=== PATIENT | female | born 1990 | race Caucasian/White ===

== ENCOUNTER → 2020-01-12 14:50 | Outpatient (CLI) | payer OTHER, SELFPAY ==
[2019-12-19 16:28] VITALS: BMI 25.4
[2020-01-12 15:19] LABS: Absolute Lymphocyte Count 2.06 X10^3/uL (0.83-4.51); Absolute Neutrophil Count 8.8 X10^3/uL (2.0-7.7); Basophil# 0.03 X10^3/uL; Basophil% 0.3 % (0-1); Eosinophil# 0.05 X10^3/uL; Eosinophils% 0.4 % (0-5); Hematocrit 36.2 % (37-47); Hemoglobin 12.2 g/dL (12.0-15.0); Lymphocyte # 2.06 X10^3/ul (4.0); Lymphocyte % 17.8 % (19-41); Mean Corp Hgb Conc 33.7 g/dL (32-36); Mean Corpuscular Hgb 31.4 pg (27.0-32.0); Mean Corpuscular Volume 93.3 fL (81-99); Mean Platelet Vol. 10.3 fl (6.2-12.0); Monocyte# 0.54 X10^3/uL; Monocyte% 4.7 % (0-10); NRBC Flagged by Analyzer 0 % (0-5); Neutrophil # 8.75 X10^3/uL (2.7-7.7); Neutrophil % 75.6 % (47-70); Platelet Count 166 K/mm3 (150-450); RBC Distribution Width CV 12.3 % (11.6-14.6); RBC Distribution Width SD 41.6 fl (35.1-43.9); Red Blood Count 3.88 M/mm3 (4.2-5.4); White Blood Count 11.6 K/mm3 (4.4-11.0)
[2020-01-12 15:47] LABS: Glucose Challenge Gest 1H 50g 153 mg/dL (70-140)
== END ==
PROVIDERS: Referring Provider Obstetrics & Gynecology; Visit Provider Obstetrics & Gynecology
DX: Z13.1 Encounter for screening for diabetes mellitus (principal); Z34.90 Encounter for supervision of normal pregnancy, unspecified, unspecified trimester
CPT/HCPCS: 36415; 82950; 85025

== ENCOUNTER → 2020-01-18 06:55 | Outpatient (CLI) | payer OTHER, SELFPAY ==
[2020-01-12 15:33] VITALS: BMI 26.2
[2020-01-18 07:34] LABS: Glucose GTT-Gestation. Fasting 89 mg/dL (<105)
[2020-01-18 09:12] LABS: Glucose GTT-Gestational 1 Hr 223 mg/dL (<190)
[2020-01-18 09:38] LABS: Glucose GTT-Gestational 2 Hr 191 mg/dL (<165)
[2020-01-18 11:07] LABS: Glucose GTT-Gestational 3 Hr 141 L (<145)
== END ==
PROVIDERS: Referring Provider Obstetrics & Gynecology; Visit Provider Obstetrics & Gynecology
DX: R73.09 Other abnormal glucose (principal)
CPT/HCPCS: 36415; 82951; 82952

== ENCOUNTER → 2020-02-07 16:19 | Outpatient (CLI) | payer OTHER, SELFPAY ==
[2020-01-25 15:38] VITALS: BMI 26.3
[2020-02-06 16:25] VITALS: BMI 27.1
--- NOTE | 2020-02-07 16:31 | US_ITS ---
STUDY: SECOND AND THIRD TRIMESTER OBSTETRICAL ULTRASOUND - LIMITED REASON FOR EXAM: Female, 29 years old. growth LMP: 06/25/19 PRIOR ULTRASOUND: None. TECHNIQUE: Transabdominal ultrasound evaluation was performed. FINDINGS: There is a single intrauterine fetus. The fetus is in a cephalic presentation. There is demonstrated cardiac activity with a heart rate of 122 bpm. There is a normal amniotic fluid volume. The largest amniotic fluid pocket measures 7.3 to cm. The amniotic fluid index (JOEL) is 17.6 cm. The placenta is anterior in location and is not low lying. There are Grade 2 placental changes. The cervix is closed and measures 3.06 cm in length. BIOMETRY: BPD: 8.04 cm: 32 weeks, 2 days HC: 29.05 cm: 31 weeks, 6 days AC: 29.32 cm: 33 weeks, 2 days FL: 6.0 cm: 31 weeks, 1 days Age by LMP: 32 weeks, 3 days. HEATHER by LMP: 03/31/20. age by current US: 31 weeks, 6 days. HEATHER by current US: 04/04/20. Estimated weight: 2016 grams, +/- 320 grams, 46 percentile. US/OB Limited With Biometrics IMPRESSION: Single live intrauterine gestation at approximately 31 weeks and 6 days based on the current ultrasound. Electronically Signed: Kenrick Myeers, at 15:55 EST Tel , Service support ,
== END ==
PROVIDERS: Referring Provider Obstetrics & Gynecology; Visit Provider Obstetrics & Gynecology
DX: O24.419 Gestational diabetes mellitus in pregnancy, unspecified control (principal); Z3A.31 31 weeks gestation of pregnancy
CPT/HCPCS: 76816

== ENCOUNTER → 2020-03-06 08:52 | Outpatient (CLI) | payer OTHER, SELFPAY ==
[2020-01-25 15:38] VITALS: BMI 26.3
[2020-02-24 08:09] VITALS: BMI 27.2
--- NOTE | 2020-03-06 08:58 | US_ITS ---
STUDY: SECOND AND THIRD TRIMESTER OBSTETRICAL ULTRASOUND - LIMITED REASON FOR EXAM: Female, 29 years old GROWTH -- HX OF GESTATIONAL DIABETES LMP: 06/25/2019 PRIOR ULTRASOUND: Comparison is made with prior study dated 02/07/2020 TECHNIQUE: Transabdominal TECHNICAL QUALITY: Adequate. FINDINGS: There is a single intrauterine fetus. The fetus is in a cephalic presentation. There is demonstrated cardiac activity with a heart rate of 140 bpm. There is a normal amniotic fluid volume. The largest amniotic fluid pocket measures 6.7 cm x 1.9 cm. The amniotic fluid index (JOEL) is 20 cm. The placenta is anterior in location and is not low lying. There are Grade 2 placental changes. The cervix was not measured. The patient did not fill the bladder. BIOMETRY: BPD: 8.93 cm: 36 weeks, 0 days HC: 32.42 cm: 36 weeks, 4 days AC: 32.9 cm: 36 weeks, 5 days FL: 7.01 cm: 35 weeks, 6 days Age by LMP: 36 weeks, 3 days. HEATHER by LMP: 03/31/2020. age by prior US: 35 weeks, 6 days. HEATHER by prior US: 04/04/2020. age by current US: 36 weeks, 6 days. HEATHER by current US: 03/28/2020. Estimated weight: 2958 grams, +/- 438 grams, 55.5 percentile. US/OB Limited With Biometrics IMPRESSION: Single live intrauterine gestation with a mean gestational age of 35 weeks and 6 days. The measurements obtained today fall within the normal expected range. Electronically Signed: Josiah Polo, at 10:08 EST , Service support ,
== END ==
PROVIDERS: Referring Provider Obstetrics & Gynecology; Visit Provider Obstetrics & Gynecology
DX: O24.419 Gestational diabetes mellitus in pregnancy, unspecified control (principal); Z3A.35 35 weeks gestation of pregnancy
CPT/HCPCS: 76816; 87081

== ENCOUNTER → 2020-03-15 17:20 | Outpatient (CLI) | payer OTHER, SELFPAY ==
[2020-03-14 15:19] VITALS: BMI 27.8
== END ==
PROVIDERS: Referring Provider Obstetrics & Gynecology; Visit Provider Obstetrics & Gynecology
DX: Z34.00 Encounter for supervision of normal first pregnancy, unspecified trimester (principal)
CPT/HCPCS: 87635; C9803; U0003

== ENCOUNTER 2020-03-21 18:05 | Inpatient (IN) | payer OTHER, SELFPAY ==
[2020-03-21] VITALS (32 sets, daily range): BP systolic 91–130; BP diastolic 49–83; PULSE 71–99; TEMP 36.3–37.1; O2SAT 82–100; BMI 28.0; BMI 28.2
[2020-03-21 18:53] LABS: Absolute Lymphocyte Count 2.83 X10^3/uL (0.83-4.51); Absolute Neutrophil Count 8.9 X10^3/uL (2.0-7.7); Basophil# 0.04 X10^3/uL; Basophil% 0.3 % (0-1); Eosinophil# 0.06 X10^3/uL; Eosinophils% 0.5 % (0-5); Hematocrit 39.9 % (37-47); Hemoglobin 13.7 g/dL (12.0-15.0); Lymphocyte # 2.83 X10^3/ul (4.0); Lymphocyte % 22.2 % (19-41); Mean Corp Hgb Conc 34.3 g/dL (32-36); Mean Corpuscular Hgb 30.9 pg (27.0-32.0); Mean Corpuscular Volume 89.9 fL (81-99); Mean Platelet Vol. 11.1 fl (6.2-12.0); Monocyte# 0.78 X10^3/uL; Monocyte% 6.1 % (0-10); NRBC Flagged by Analyzer 0 % (0-5); Neutrophil % 69.8 % (47-70); Platelet Count 151 K/mm3 (150-450); RBC Distribution Width CV 12.2 % (11.6-14.6); RBC Distribution Width SD 40.4 fl (35.1-43.9); Red Blood Count 4.44 M/mm3 (4.2-5.4); White Blood Count 12.8 K/mm3 (4.4-11.0)
[2020-03-21 18:56] LABS: Bedside Glucose 96 mg/dL (70-110)
[2020-03-21] MEDS: Lactated Ringers 1,000 ML 50 ML IV (19:16)
[2020-03-21] MEDS: Lactated Ringers 500 ML 999 ML IV ×2 (19:18→20:34)
[2020-03-21] MEDS: 0.9% Saline Lock 10 ML Syringe IV (19:40)
[2020-03-21] MEDS: Ondansetron 4 MG/2 ML Vial IV (19:40)
--- NOTE | 2020-03-21 20:04 | PCM.HPOB.BLA ---
- Problem List (1) Rupture of membranes with clear amniotic fluid Status: Acute (2) 38 weeks gestation of Status: Acute Comment: electronic test ordered 03/20/20 (scheduled for 03/21/20 at 1655) (3) Gestational diabetes mellitus (GDM) affecting Status: Acute Comment: Following with Dr. Magdaleno (endo). Currently controlled with diet. Weekly NSTs and q4 weeks for growth US at 32 weeks. Timing of delivery pending glycemic control. Growth 02/09- 47% (4) Status: Acute Qualifiers: Comment: anatomy US normal. JD from [place] (5) Supervision of normal first Status: Acute Qualifiers: Comment: PRR ([place] NOB labs) HEATHER 03/31/20 Boy! Surendra History and Physical Date of Admission: 03/21/20 Intake Vital Signs 03/21/20 Height 5 ft 1 in 03/21/20 Weight: 148 lb 2 oz 03/21/20 BMI 28.0 03/21/20 BP 110/72 Intake Visit Reasons: 38 WK OB/NST [employer] Required: No Is patient in pain?: No Allergies No Known Allergies Allergy (Verified 03/21/20 16:14) Medications vitamin #56-iron 35 mg and 5 mg-folic acid 1 mg-dha capsule 1 cap PO DAILY 12/19/19 [History Confirmed 03/21/20] blood sugar diagnostic See Rx Instructions .ROUTE .MEDSUPPLY #100 ea 01/20/20 [Rx Confirmed 03/21/20] blood-glucose meter See Rx Instructions .ROUTE .MEDSUPPLY #1 ea 01/20/20 [Rx Confirmed 03/21/20] Last Menstral Period: 06/25/19 Zika: Zika virus screening: Negative : No PFSH PFSH Family History Grandmother Diabetes Grandfather Parkinsons disease CAD (coronary artery disease) Cancer melanoma Hypertension Social History (Updated 03/21/20 @ 16:[address] Mirella Meyer MD) Smoking Status: Never smoker alcohol intake: never substance use type: does not use caffeine: Yes what type of physical activity do you participate in: none seatbelt use: always do you feel safe at home: Yes additional social history: Surendra- [employer] Patient is a speech therapist Pregancy History 1 Elective abortions Hx Para Spontaneous abortions Hx # Term Pregnancies Ectopic pregnancies Hx # Pregnancies Multiple births # of living children HPI 38 WK OB/NST: Details: JOSH HAIRSTON is a 29 year old who presents for routine OB visit. OB Visit HEATHER Calculator Estimated Delivery Date Method Current WG Current Estimate 03/31/20 LMP (Certain) 38w 4d Expected Delivery Route/Plan Labor Preferences- CB/BF classes: scheduled 02/03 labor support person: Surendra labor intervention preferences: open to standard interventions pain management options preferred: epidural cut cord/dad catch: yes : yes PP control planned: [] discussed possible routes of delivery and associated risks: discussed possible delivery modalities and possible indications for each including R/B/A of , VAVD, FAVD, and CS. questions answered. special requests: none Specific Issue/Plans flu vaccine: given tdap vaccine: declines rhogam: NA LARC form signed: 01/11 movement and labor precautions reviewed. Problem list reviewed and updated with the most current plan of care details and appropriate orders placed. Relevant counseling for the gestational age provided. Continue routine care and follow up unless otherwise noted in visit notes/problem list details Initial Weight: Not Recorded Date EGA Weight BP Urine Prot Glucose FHR FuHt Pres Dilation Effaced St Visit Note 12/19/19 25w 2d 135 lb 100/62 145 25 Sm- JD [place]. n ovb lof good fm no regular ctx. given glucola 01/12/20 28w 5d 139 lb 116/80 Negative Negative 140 28 GP - no LOF, VB, DFM, ctx. Larc form signed - declines. Declines TDAP. 1h GCT elevated - discussed 3h. 01/25/20 30w 4d 139 lb 6 oz 114/76 Negative Negative 135 30 GP - no LOF, VB, DFM, ctx. Recent Dx GDMA - endo visit next week. Discussed BGT monitoring and testing. GP - no LOF, VB, DFM, ctx. Recent Dx GDMA - endo visit next week. Discussed BGT monitoring and testing. CB classes scheduled before next visit. 02/06/20 32w 2d 144 lb 120/72 Negative Negative 130 32 SM- no vb lof good fm no regular ctx, BS well controlled. 02/15/20 33w 4d 146 lb 105/68 Negative Negative 130 GP - NST only - reactive. 02/24/20 34w 6d 144 lb 4 oz Negative Negative 140 GP - no LOFm VB, DFM, ctx. Discussed labor preferences and routes of delivery. GP - no LOF, VB, DFM, ctx. Discussed labor preferences and routes of delivery. NST reactive. 02/29/20 35w 4d 120 GP - NST only, reactive 03/06/20 36w 3d 145 lb 4 oz 96/60 Negative Negative 140 37 Cephalic 2 40 -2 MH-Reactive NST. Good FM. NO VB, LOF, CTX. Growth US today-EFW 55%. GBS. 03/14/20 37w 4d 147 lb 2 oz 120/70 Negative Negative 130 37 Cephalic 4 70 -2 GP - no LOF, VB, DFM. Not feeling contractions. GP - no LOF, VB, DFM. Not feeling contractions. COVID testing scheduled for tomorrow. 03/21/20 38w 4d 148 lb 2 oz 110/72 Negative Negative 140 38 Cephalic 5 80 -1 GP - no LOF, VB, DFM, ctx. NST reactive. GP - no LOF, VB, DFM, ctx. NST reactive. SROM with membrane sweeping in office. Sent for delivery. Diagnostics Diagnostics Diagnostics Gest Glucose Tolerance MG/DL 01/18/20 Details: HIV: Urine Culture: Sequential Screen: NIPT Screen: ROS Const Reports system reviewed and no additional complaints, except as docu Eyes Reports system reviewed and no additional complaints, except as docu ENT Reports system reviewed and no additional complaints, except as docu Card Reports system reviewed and no additional complaints, except as docu Resp Reports system reviewed and no additional complaints, except as docu GI Reports system reviewed and no additional complaints, except as docu Reports system reviewed and no additional complaints, except as docu, Denies abnormal vaginal bleeding, Denies painful urination, Denies pelvic pain, Denies vaginal discharge, Denies vaginal odor, Denies vaginal itching Musc Reports system reviewed and no additional complaints, except as docu Skin/Breast Reports system reviewed and no additional complaints, except as docu Neuro Yes system reviewed and no additional complaints, except as docu Psych Reports system reviewed and no additional complaints, except as docu Endo Reports system reviewed and no additional complaints, except as docu Exam Const General: cooperative, healthy appearing, comfortable, no acute distress, well developed, well groomed Nutritional Appearance: average body habitus, well nourished Orientation: alert, awake, oriented x3 HENMT Head: normal to inspection, normocephalic, atraumatic Eyes Pupils: PERRL, accommodation normal Resp Effort & Inspection: normal respiratory effort, able to speak in complete sentences, symmetric chest movement Cardio Rate: regular rate GI Palpation: soft, no guarding, no masses, nontender Skin General: no rashes or lesions noted, elasticity normal, turgor normal Neuro General: alert, awake, oriented x3 Cranial Nerves: CN's II-XI intact bilaterally, sense of smell intact, PERRL, accommodation normal, EOM intact bilaterally Speech: speech normal Gait: normal gait Psych Appearance: grossly normal, well kempt Mental Status: mental status grossly normal Mood: congruent mood Affect: normal affect Speech and Movement: speech and movement normal Attitude: cooperative Thought Process: normal Thought Content: normal Judgment: judgment good Office Procedures OB NST Non-Stress Test Indications for Monitoring: Yes diabetes Heart Rate Baseline: 140 Heart Rate Variability: moderate Movement: Present Heart Rate Accelerations: Present Decelerations: Absent Contractions: Absent Impression: Yes Reactive Non-Stress Test Results POC Urinalysis 2 Dip (Clinic) Office Urine Glucose Negative Last Edit by Kay Dexter on 03/21/20 16:23 Office Urine Protein Negative Last Edit by Kay Dexter on 03/21/20 16:23 Assessment & Plan Problems 1. 38 weeks gestation of Z3A.38 electronic test ordered 03/20/20 (scheduled for 03/21/20 at 1655) 2. Gestational diabetes mellitus (GDM) affecting O24.[address] Magdaleno (endo). Currently controlled with diet. Weekly NSTs and q4 weeks for growth US at 32 weeks. Timing of delivery pending glycemic control. Growth 11/27- 47% 3. Encounter for supervision of normal first in third trimester Z34.03 PRR ([employer] labs) HEATHER 03/31/20 Boy! Surendra 4. 38 weeks gestation of Z3A.38 anatomy US normal. JD from [place] Patient presents IAL, plan expectant management for , pitocin if needed. Pain management: plans epidural. GBS negative. Management of any complications: none I have reviewed the [facility] and made any clinically relevant updates. UPDATE- I have seen the patient and performed any clinically relevant updates to the history and physical exam. Mirella Meyer MD
[2020-03-21] MEDS: fentaNYL-bupivacaine (epidural) 100 ML BAG EPIDURAL ×2 (20:12→23:51)
[2020-03-21 21:01] LABS: Bedside Glucose 123 mg/dL (70-110)
[2020-03-21 22:00] LABS: Bedside Glucose 142 mg/dL (70-110)
[2020-03-21 22:51] LABS: Bedside Glucose 117 mg/dL (70-110)
[2020-03-21] MEDS: Lactated Ringers 1,000 ML 200 ML IV (23:25)
[2020-03-21 23:35] LABS: Bedside Glucose 110 mg/dL (70-110)
[2020-03-22] VITALS (25 sets, daily range): BP systolic 86–124; BP diastolic 50–80; PULSE 63–110; RESP 16–18; TEMP 36.1–37.7; O2SAT 94–98
[2020-03-22] MEDS: Oxytocin 30 units/NS 500 ml 30 UNITS/500 ML IV.SOLN 334 UNITS IV (01:15)
[2020-03-22] MEDS: Methylergonovine 0.2 MG/ML Ampul IM (01:21)
--- NOTE | 2020-03-22 01:37 | OP.PCM_ITS ---
Problem List (1) Rupture of membranes with clear amniotic fluid Status: Acute (2) 38 weeks gestation of Status: Acute Comment: electronic test ordered 03/20/20 (scheduled for 03/21/20 at 1655) (3) Gestational diabetes mellitus (GDM) affecting Status: Acute Comment: Following with Dr. Magdaleno (endo). Currently controlled with diet. Weekly NSTs and q4 weeks for growth US at 32 weeks. Timing of delivery pending glycemic control. Growth 02/09- 47% (4) Status: Acute Qualifiers: Comment: anatomy US normal. JD from [place] (5) Supervision of normal first Status: Acute Qualifiers: Comment: PRR ([place] NOB labs) HEATHER 03/31/20 Boy! Surendra Vaginal Delivery Maternal Presentation: Spontaneous Rupture of Membranes 29-year-old G1, P0 at 38 weeks gestation admitted for augmentation of labor for PROM after spontaneous rupture of membranes during exam in the office. Patient began keila every 2 minutes spontaneously and made cervical change to complete dilation without augmentation. Amniotic Membrane Rupture Type: Spontaneous Amniotic Fluid Description: Clear Final HEATHER: 03/31/20 Gestational age: 38 Weeks and 5 Days Date of Procedure: 03/22/20 Pre-Operative Diagnosis: Term , active labor, gestational diabetes controlled with diet Post-Operative Diagnosis: Same Surgery/ Procedure Performed: Spontaneous Vaginal Delivery Type of Anesthesia: Epidural Description of Procedure: Patient began pushing and delivered the head in the JL presentation. The head was delivered atraumatically no nuchal cord was noted. The anterior and posterior shoulders delivered without complication followed by the rest of the infant and the was placed on the maternal abdomen. Delayed cord clamping was employed for approximately 60 seconds. Cord was clamped and cut and gentle traction was applied to the cord and the placenta delivered spontaneously immediately following it was noted to be intact with three-vessel cord. The perineum and vagina were inspected and a midline second-degree perineal laceration was noted and repaired in the standard fashion using 3-0 Vicryl rapide suture. The patient was given a dose of Methergine as mild uterine atony was noted. EBL was 350 cc. Patient and infant tolerated delivery well. Presentation: Vertex, JL Placental Delivery Description: Spontaneous Placenta Disposition: [facility] Cord Vessel Description: 3 Vessels Cord Entanglement: None Estimated Blood Loss: 350 cc A gender: Male (1 minute): 8 (5 minute): 9 Episiotomy Description: None Laceration: None, Perineal Extension/lac, 2nd degree Medications given after delivery: IV Pitocin, IM Methergin Complications: None Multi Select Codes - Urinary/Genital Urinary/Genital CPT Codes: 13306 Vaginal Delivery [facility]
[2020-03-22] MEDS: Ondansetron 4 MG/2 ML Vial IV (01:48)
[2020-03-22 01:56] LABS: Bedside Glucose 102 mg/dL (70-110)
[2020-03-22] MEDS: Naproxen 250 MG Tablet 500 MG PO ×2 (05:19→16:02)
[2020-03-22] MEDS: Acetaminophen 500 MG Tablet 1000 MG PO ×2 (09:45→21:36)
[2020-03-22] MEDS: Dibucaine 30 GM Tube 1 APPLIC TOPICAL (18:02)
[2020-03-23 04:16] VITALS: BP 98/67; PULSE 72; RESP 18; TEMP 36.6; O2SAT 97
[2020-03-23] MEDS: Naproxen 250 MG Tablet 500 MG PO ×2 (04:19→17:57)
--- NOTE | 2020-03-23 07:23 | PCM.PN.OB ---
Patient Problems: Active and Suspected Problems (Last Reviewed 03/21/20 @ 16:13 by Kay Dexter) Rupture of membranes with clear amniotic fluid (Acute) 38 weeks gestation of (Acute) electronic test ordered 03/20/20 (scheduled for 03/21/20 at 1655) Gestational diabetes mellitus (GDM) affecting (Acute) Following with Dr. Magdaleno (endo). Currently controlled with diet. Weekly NSTs and q4 weeks for growth US at 32 weeks. Timing of delivery pending glycemic control. Growth 02/09- 47% Supervision of normal first (Acute) PRR ([employer] labs) HEATHER 03/31/20 Boy! Surendra (Acute) anatomy US normal. JD from [place] Subjective: Patient doing well without complaints. Tolerating PO. Ambulating and voiding without difficulty. breast feeding well. Denies chest pain, shortness of breath, calf pain/swelling, fevers, chills, lightheadedness. - Physical Exam Vitals/I&O's: Vital Signs Temp Pulse Resp BP Pulse Ox 97.9 F 72 18 98/67 97 03/23/20 04:16 03/23/20 04:16 03/23/20 04:16 03/23/20 04:16 03/23/20 04:16 Oxygen Delivery Method Room Air Weight: 149 lb 4.047 oz Body Mass Index (BMI) 28.2 Intake and Output for Last 24 Hours 03/21/20 03/22/20 03/23/20 23:59 23:59 23:59 Intake Total 1616.67 / 1866.67 1100 / 1100 Output Total 1950 / 1950 Balance 1616.67 / 1066.67 -850 / -850 General: Alert, Oriented x3 Current Medications Acetaminophen (Acetaminophen 500 Mg Tablet) 1,000 mg PO Q8H PRN PRN PRN Reason: Pain Score 1-3 Last Admin: 03/22/20 21:36 Dose: 1,000 mg Documented by: Bisacodyl (Bisacodyl 10 Mg Suppository) 10 mg RECTAL UD PRN PRN Reason: If no BM Dextrose (Dextrose 50%-Water 25 Gm/50 Ml Disp.Syrin) 0 gm IV X1 PRN; Protocol PRN Reason: Hypoglycemia Dibucaine (Dibucaine 30 Gm Tube) 1 applic TOPICAL TID PRN PRN; Protocol PRN Reason: Discomfort Last Admin: 03/22/20 18:02 Dose: 1 applicatio Documented by: Glucagon (Glucagon 1 Mg/Ml Syringe) 1 mg IM .X1 PRN PRN Reason: Hypoglycemia Hydrocortisone (Hydrocortisone 2.5% Crm) 1 applic TOPICAL TID PRN PRN; Protocol PRN Reason: Discomfort Methylergonovine Maleate (Methylergonovine 0.2 Mg/Ml Ampul) 0.2 mg IM X1 PRN PRN Reason: Excess bleeding/uterine atony Naproxen (Naproxen 250 Mg Tablet) 500 mg PO Q8H PRN PRN PRN Reason: Pain Score 1-3 Last Admin: 03/23/20 04:19 Dose: 500 mg Documented by: Ondansetron HCl (Ondansetron 4 Mg/2 Ml Vial) 4 mg IV Q4H PRN PRN PRN Reason: Nausea Oxycodone HCl (Oxycodone 5 Mg Tablet) 5 - 10 mg PO Q4H PRN PRN PRN Reason: Pain Score 4-10 Senna/Docusate Sodium (Senna/Docusate Sodium 1 Tablet) 1 - 2 tablet PO DAILY PRN PRN PRN Reason: Constipation Simethicone (Simethicone 80 Mg Tablet) 80 mg PO PCHS PRN PRN Reason: Indigestion/Stomach pain Sodium Chloride (0.9% Saline Lock 10 Ml Syringe) 5 - 15 ml IV UD PRN PRN Reason: SALINE FLUSH Medical Necessity - Tobacco Use Smoking Status: Never smoker Assessment/Plan All Active Problems (Last Reviewed 03/21/20 @ 16:13 by Kay Dexter) Rupture of membranes with clear amniotic fluid (Acute) 38 weeks gestation of (Acute) Gestational diabetes mellitus (GDM) affecting (Acute) Supervision of normal first (Acute) (Acute) s/p PPD # 1 1. routine post delivery care 2. breast feeding- support given 3. rh positive 4. rubella immune
--- NOTE | 2020-03-23 07:24 | DCINST_ITS ---
Discharge Diet: No Restrictions Discharge Activity: Return to Normal Activity, May not drive while taking narcotic pain medications., May Shower May resume sexual activity in: 4-6 weeks Call your doctor if your incision/area has: Continuous Slow Oozing, Sudden Increased Bleeding, Increased Pain/ Swelling, Increased Redness, Foul Smelling Discharge Additional Instructions: If you experience any of the following, contact your healthcare provider. * Bleeding that soaks a pad every hour for 2 hours * Fever 100.4 or higher * Unrelieved incision or abdominal pain * Swelling, redness, discharge or bleeding from your incision or episiotomy site * Your incision begins to separate * Problems urinating (including inability to urinate or burning while urinating). * Visual changes * Severe headache * Flu-like symptoms * Pain or redness in one of both of your breasts * Pain, warmth, tenderness or swelling in your legs, especially the calf area * Frequent nausea and vomiting * Symptoms of depression or anxiety If you experience any of the following, call 911 or go to the nearest Emergency Room. * Chest pain * Problems breathing * Seizure activity * Partial or complete paralysis of a body part, slurred speech, weakness or drooping of the face, or a sudden inability to walk or hold your balance Allergies/Adverse Reactions: Allergies No Known Allergies Allergy (Verified 03/21/20 16:14) Medications to take at Discharge vitamin #56-iron 35 mg and 5 mg-folic acid 1 mg-dha capsule 1 cap PO DAILY 12/19/19 Blood Sugar Diagnostic [Blood Glucose Test] See Rx Instructions .ROUTE .MEDSUPPLY 03/21/20 Blood-Glucose Meter [Contour] See Rx Instructions .ROUTE .MEDSUPPLY 03/21/20 Please Follow Up With: Bonnie Diaz MD - [phone] When: Call to make an appointment with your doctor in 6 weeks. If you had elevated Blood pressure or 4th degree laceration you will need to be seen in 2 weeks. Primary Care Physician: Care Physician,No Primary [Primary Care Provider] - Test Results: Test results from this visit will be discussed in further detail at your follow- up appointment, if applicable.
[2020-03-23 08:33] LABS: Bedside Glucose 85 mg/dL (70-110)
[2020-03-23 09:30] VITALS: BP 94/58; PULSE 81; RESP 16; TEMP 36.3; O2SAT 97
[2020-03-23 13:07] VITALS: BP 100/63; PULSE 74; RESP 16; TEMP 36.7; O2SAT 98
[2020-03-23 16:50] VITALS: BP 98/58; PULSE 80; RESP 16; TEMP 36.6; O2SAT 98
== END 2020-03-23 18:55 | disposition home or self-care (01) | DRG 807 ==
PROVIDERS: Admitting Provider Obstetrics & Gynecology; Visit Provider Obstetrics & Gynecology
DX: O42.02 Full-term premature rupture of membranes, onset of labor within 24 hours of rupture (principal); Z37.0 Single live birth; O70.1 Second degree perineal laceration during delivery; O62.2 Other uterine inertia; O24.429 Gestational diabetes mellitus in childbirth, unspecified control; Z3A.38 38 weeks gestation of pregnancy
CPT/HCPCS: 59025; 59050; 82962; 85025; 86850; 86900; 86901; 99218; J7120; A4216; G0378; J2405

== ENCOUNTER → 2020-04-03 15:33 | Outpatient (CLI) | payer OTHER, SELFPAY ==
[2020-03-21 18:41] VITALS: BMI 28.2
== END ==
PROVIDERS: Referring Provider Obstetrics & Gynecology; Visit Provider Obstetrics & Gynecology
DX: O92.70 Unspecified disorders of lactation (principal)
CPT/HCPCS: 96158; 96159

== ENCOUNTER → 2021-08-14 | Outpatient (CLI) | payer OTHER, SELFPAY ==
[2021-08-14 11:33] LABS: Amphetamine Urine VISTA NEGATIVE (<1000 ng/mL); Barbiturate Urine VISTA NEGATIVE (< 200 ng/mL); Benzodiazepine Urine VISTA NEGATIVE (< 200 ng/mL); Cocaine Urine VISTA NEGATIVE (< 300 ng/mL); Ecstacy Urine VISTA NEGATIVE (< 500 ng/mL); Methadone Urine VISTA NEGATIVE (< 300 ng/mL); PCP Urine VISTA NEGATIVE (< 25 ng/mL); THC Urine VISTA NEGATIVE (< 50 ng/mL); Vista UDS pH Range 6
[2021-08-15 22:07] LABS: Chlamydia By Nucleic Acid AMP Negative (Negative)
[2021-08-16 08:47] LABS: Gonococcus By Nucleic Acid AMP Negative (Negative)
== END | disposition home or self-care (01) ==
LOC: LABSPEC 08-16 04:48
PROVIDERS: Visit Provider Obstetrics & Gynecology
DX: Z34.02 Encounter for supervision of normal first pregnancy, second trimester (principal)
CPT/HCPCS: 80307; 87086; 87088; 87491; 87591

== ENCOUNTER → 2021-08-19 | Outpatient (CLI) | payer OTHER, SELFPAY ==
[2021-08-19 10:27] LABS: Absolute Lymphocyte Count 2.28 X10^3/uL (0.83-4.51); Absolute Neutrophil Count 7.4 X10^3/uL (2.0-7.7); Basophil# 0.02 X10^3/uL; Basophil% 0.2 % (0-1); Eosinophil# 0.16 X10^3/uL; Eosinophils% 1.5 % (0-5); Hematocrit 39.8 % (37-47); Hemoglobin 13.6 g/dL (12.0-15.0); Lymphocyte # 2.28 X10^3/ul (0.83-4.51); Lymphocyte % 21.6 % (19-41); Mean Corp Hgb Conc 34.2 g/dL (32-36); Mean Corpuscular Hgb 31.6 pg (27.0-32.0); Mean Corpuscular Volume 92.6 fL (81-99); Mean Platelet Vol. 9.7 fl (6.2-12.0); Monocyte# 0.64 X10^3/uL; Monocyte% 6.1 % (0-10); NRBC Flagged by Analyzer 0 % (0-5); Neutrophil # 7.38 X10^3/uL (2.7-7.7); Platelet Count 228 K/mm3 (150-450); RBC Distribution Width CV 12.2 % (11.6-14.6); RBC Distribution Width SD 41.5 fl (35.1-43.9); White Blood Count 10.5 K/mm3 (4.4-11.0)
[2021-08-19 11:03] LABS: Glucose Challenge Gest 1H 50g 102 mg/dL (70-140)
[2021-08-19 11:38] LABS: HIV - WCH Non-Reactive (Nonreactive); Hepatitis B Surface Antigen Non-Reactive (Nonreactive); Hepatitis C Antibody Non-Reactive (Nonreactive); Rubella IgG Reactive (Nonreactive); Syphilis Antibodies Non-reactive
== END | disposition home or self-care (01) ==
LOC: PAVLAB 09:56
PROVIDERS: Referring Provider Obstetrics & Gynecology; Visit Provider Obstetrics & Gynecology
DX: Z34.90 Encounter for supervision of normal pregnancy, unspecified, unspecified trimester (principal)
CPT/HCPCS: 36415; 82950; 85025; 86703; 86762; 86780; 86803; 86850; 86900; 86901; 87340

== ENCOUNTER 2021-10-22 10:00 | Outpatient (RCR) | payer OTHER, SELFPAY ==
--- NOTE | 2021-12-24 12:15 | HP.PT.NRP ---
JOSH HAIRSTON was seen in my office for initial evaluation on 10/18/21. The following Plan of Care was established for this patient: Initial Frequency: 2-3x /Week Initial Duration: 4-6 Weeks Patient/Client Instruction: Educate patient on: Condition, Plan of Care, Risk Factors For the Purpose of:: To improve self management Therapeutic Exercise to Include: Strength training, Neuromotor development, In an aquatic setting, Dynamic Lumbar Stabilization For the Purpose of:: To decrease pain, To improve muscle performance and motor function, To increase tolerance to activity/condition/position, To improve ability of physical actions for home/community/work/leisure This patient was last seen in our office 10/22/21. Pertinent comments regarding their Physical therapy will appear below: This patient has not returned to Physical Therapy and is appropriate to return to MD for further follow-up as needed. At this point I will be discontinuing this patient from physical therapy. I would be happy to see this patient again in the future if found appropriate by the physician. Thank you! Genesis Carolina, PT, Cert MDT
== END 2021-10-22 19:00 | disposition home or self-care (01) ==
LOC: PT 10:00
PROVIDERS: Referring Provider Obstetrics & Gynecology; Visit Provider Obstetrics & Gynecology
DX: M62.08 Separation of muscle (nontraumatic), other site (principal)
CPT/HCPCS: 97162; 97530

== ENCOUNTER → 2021-12-27 | Outpatient (CLI) | payer OTHER, SELFPAY ==
[2021-12-27 09:01] LABS: Absolute Lymphocyte Count 2.05 X10^3/uL (0.83-4.51); Absolute Neutrophil Count 6.5 X10^3/uL (2.0-7.7); Basophil# 0.02 X10^3/uL; Basophil% 0.2 % (0-1); Eosinophil# 0.08 X10^3/uL; Eosinophils% 0.9 % (0-5); Hematocrit 36.5 % (37-47); Hemoglobin 12.4 g/dL (12.0-15.0); Lymphocyte # 2.05 X10^3/ul (0.83-4.51); Lymphocyte % 22.3 % (19-41); Mean Corpuscular Hgb 31.5 pg (27.0-32.0); Mean Corpuscular Volume 92.6 fL (81-99); Mean Platelet Vol. 9.7 fl (6.2-12.0); Monocyte# 0.39 X10^3/uL; Monocyte% 4.2 % (0-10); NRBC Flagged by Analyzer 0 % (0-5); Neutrophil % 70.7 % (47-70); Platelet Count 176 K/mm3 (150-450); RBC Distribution Width CV 12.5 % (11.6-14.6); Red Blood Count 3.94 M/mm3 (4.2-5.4); White Blood Count 9.2 K/mm3 (4.4-11.0)
[2021-12-27 09:30] LABS: Glucose Challenge Gest 1H 50g 179 mg/dL (70-140)
== END | disposition home or self-care (01) ==
PROVIDERS: Referring Provider Nurse Practitioner Women's Health; Visit Provider Nurse Practitioner Women's Health
DX: Z34.92 Encounter for supervision of normal pregnancy, unspecified, second trimester (principal)
CPT/HCPCS: 36415; 82950; 85025

== ENCOUNTER 2022-01-07 15:46 | Outpatient (RCR) | payer OTHER, SELFPAY | END 2022-01-13 23:59 | LOC: DC 15:46 | PROVIDERS: Visit Provider Obstetrics & Gynecology | DX: O24.419 Gestational diabetes mellitus in pregnancy, unspecified control (principal) | CPT/HCPCS: 97802 ==

== ENCOUNTER 2022-01-28 15:30 | Outpatient (RCR) | payer OTHER, SELFPAY | END 2022-02-12 23:59 | LOC: DC 15:30 | PROVIDERS: Visit Provider Obstetrics & Gynecology | DX: O24.419 Gestational diabetes mellitus in pregnancy, unspecified control (principal) | CPT/HCPCS: 97803 ==

== ENCOUNTER → 2022-02-07 | Outpatient (CLI) | payer OTHER, SELFPAY ==
--- NOTE | 2022-02-07 14:46 | US_ITS ---
EXAM: US BIOPHYSICAL PROFILE WITHOUT NON-STRESS TESTING CLINICAL INDICATION: well being TECHNIQUE: Real-time ultrasound of the maternal pelvis for biophysical profile evaluation with image documentation. This report was created using [facility] report generation technology. COMPARISON: None. FINDINGS: BREATHING MOVEMENTS: Present. Score 2/2. GROSS BODY MOVEMENTS: Present. Score 2/2. TONE: Present. Score 2/2. QUALITATIVE AMNIOTIC FLUID VOLUME: JOEL is 14.3 cm. HEART RATE: heart rate is 131 bpm. PRESENTATION: There is a single intrauterine fetus. Fetus is in a cephalic position. PLACENTA: Placenta is posterior. OTHER FINDINGS: Biophysical profile scores 8/8. US/Biophysical Prof W/O Non Stres IMPRESSION: Intrauterine gestation with heart rate of 131 bpm. JOEL is 14.3 cm and biophysical profile score is 8/8. Electronically Signed: Almas Cox MD at 17:29 EST ,
== END | disposition home or self-care (01) ==
PROVIDERS: Visit Provider Obstetrics & Gynecology
DX: O24.419 Gestational diabetes mellitus in pregnancy, unspecified control (principal)
CPT/HCPCS: 76819

== ENCOUNTER → 2022-02-20 | Outpatient (CLI) | payer OTHER, SELFPAY ==
--- NOTE | 2022-02-20 08:27 | US_ITS ---
STUDY: SECOND AND THIRD TRIMESTER OBSTETRICAL ULTRASOUND - LIMITED REASON FOR EXAM: Female, 31 years old growth LMP: 06/11/2021. PRIOR ULTRASOUND: Comparison is made with prior study dated 02/07/2022. TECHNIQUE: Transabdominal TECHNICAL QUALITY: Adequate. FINDINGS: There is a single intrauterine fetus. The fetus is in a cephalic presentation. There is demonstrated cardiac activity with a heart rate of 160 bpm. There is a normal amniotic fluid volume. The largest amniotic fluid pocket measures 5.5 cm. The amniotic fluid index (JOEL) is 14.4 cm. The placenta is posterior in location and is not low lying. There are Grade 2 placental changes. The cervix measures 4.8 cm in length. BIOMETRY: BPD: 8.8 cm: 35 weeks, 3 days HC: 31.5 cm: 35 weeks, 2 days AC: 31.3 cm: 35 weeks, 1 days FL: 7 cm: 35 weeks, 5 days Age by LMP: 36 weeks, 2 days. HEATHER by LMP: 03/18/2022. age by current US: 35 weeks, 1 days. HEATHER by current US: 03/26/2022. Estimated weight: 2699 grams, +/- 405 grams, 32 percentile. US/OB Limited With Biometrics IMPRESSION: Single live uterine gestation with a mean gestational age of 35 weeks and 1 day. Electronically Signed: Josiah Polo MD at 10:16 EST ,
== END | disposition home or self-care (01) ==
LOC: US 08:23
PROVIDERS: Visit Provider Obstetrics & Gynecology
DX: O24.419 Gestational diabetes mellitus in pregnancy, unspecified control (principal); Z3A.35 35 weeks gestation of pregnancy
CPT/HCPCS: 76816

== ENCOUNTER → 2022-02-21 | Outpatient (CLI) | payer OTHER, SELFPAY | END | disposition home or self-care (01) | LOC: LABSPEC 14:42 | PROVIDERS: Visit Provider Obstetrics & Gynecology | DX: Z34.90 Encounter for supervision of normal pregnancy, unspecified, unspecified trimester (principal) | CPT/HCPCS: 87077; 87081; 87186 ==

== ENCOUNTER 2022-03-08 04:05 | Inpatient (IN) | payer OTHER, SELFPAY ==
[2022-03-08] VITALS (53 sets, daily range): BP systolic 81–124; BP diastolic 43–64; PULSE 55–85; RESP 14; TEMP 36.2–36.7; O2SAT 92–99; BMI 29.6
[2022-03-08 04:03] LABS: ROM Internal Control Test YES-OK TO RESULT pt. (Internal QC); ROM Patient Test POSITIVE (Negative)
[2022-03-08 04:31] LABS: Absolute Lymphocyte Count 2.25 X10^3/uL (0.83-4.51); Absolute Neutrophil Count 6.2 X10^3/uL (2.0-7.7); Basophil# 0.03 X10^3/uL; Basophil% 0.3 % (0-1); Eosinophil# 0.09 X10^3/uL; Hematocrit 36.9 % (37-47); Hemoglobin 11.8 g/dL (12.0-15.0); Lymphocyte # 2.25 X10^3/ul (0.83-4.51); Lymphocyte % 23.9 % (19-41); Mean Corpuscular Volume 87.4 fL (81-99); Mean Platelet Vol. 10.3 fl (6.2-12.0); Monocyte# 0.69 X10^3/uL; Monocyte% 7.3 % (0-10); NRBC Flagged by Analyzer 0 % (0-5); Neutrophil # 6.23 X10^3/uL (2.7-7.7); Neutrophil % 66.3 % (47-70); Platelet Count 167 K/mm3 (150-450); RBC Distribution Width CV 13.4 % (11.6-14.6); RBC Distribution Width SD 42.4 fl (35.1-43.9); Red Blood Count 4.22 M/mm3 (4.2-5.4); White Blood Count 9.4 K/mm3 (4.4-11.0)
[2022-03-08 05:16] LABS: Bedside Glucose 92 mg/dL (74-106)
[2022-03-08] MEDS: Lactated Ringers 1,000 ML 50 ML IV (05:23)
[2022-03-08 06:00] LABS: Bedside Glucose 92 mg/dL (74-106)
[2022-03-08] MEDS: Oxytocin 15 Units/NS 250ml 15 UNITS/250 ML IV.SOLN 2 UNITS IV (07:02)
--- NOTE | 2022-03-08 07:13 | HP.PCM.OB_ITS ---
HPI - General General Date of Admission: 03/08/22 HPI Narrative JOSH HAIRSTON, is a 31 F who presents IAL SROM girl 3-4 cm but not regularly keila. she denies any bleeding, she is gbs positive. Maternal Data Information HEATHER Calculator Estimated Delivery Date Method Current WG Current Estimate 03/18/22 LMP (Certain) 38w 4d Other Estimates 03/16/22 Ultrasound #1 38w 6d [facility] Medical History (Updated 03/08/22 @ 07:[address] Bonnie Diaz MD) Low-lying placenta in second trimester Positive GBS test Home Medications vitamin #56-iron 35 mg and 5 mg-folic acid 1 mg-dha capsule 1 cap PO DAILY Check with primary doctor 12/19/19 [History Last Taken 1 Day Ago ~03/20/20] blood sugar diagnostic (Blood Glucose Test strips) #50 ea 12/27/21 [Rx Last Taken Unknown] blood-glucose meter #1 ea 12/27/21 [Rx Last Taken Unknown] lancets 33 gauge (BD Ultra Fine Lancets) #100 ea 12/27/21 [Rx Last Taken Unknown] blood sugar diagnostic (Blood Glucose Test strips) #150 ea 01/13/22 [Rx Last Taken Unknown] pen needle, diabetic 32 gauge x 5/32 (BD Ultra-Fine Meeta Pen Needle) #50 ea 01/14/22 [Rx Last Taken Unknown] insulin NPH isoph U-100 human 100 unit/mL (3 mL) subcutaneous pen (Novolin N Flexpen) 27 unit subcut QPM 01/31/22 [History Last Taken Unknown] Allergy/AdvReac Type Severity Reaction Status Date / Time No Known Allergies Allergy Verified 03/08/22 03:27 Family History Grandmother Diabetes Grandfather Parkinsons disease CAD (coronary artery disease) Cancer melanoma Hypertension Hyperlipidemia Surgical History No pertinent past surgical history Social History Smoking Status: Never smoker alcohol intake: never substance use type: does not use caffeine: Yes what type of physical activity do you participate in: none seatbelt use: always do you feel safe at home: Yes additional social history: Surendra- [employer] Patient is a speech therapist History 1 Elective abortions Hx Para 1 Spontaneous abortions Hx # Term Pregnancies Ectopic pregnancies Hx # Pregnancies Multiple births # of living children 1 Past Pregnancies Del. Date Name GA/Weeks Outcome Route Bth Weight Infant Gen Labor Lgth Anesthesia Del Locatn Provider FOB 03/22/20 Sam 38 live - full term 8lbs 2oz Male epi dural [facility] Delivery Date: 03/22/20 Last Updated by: Shilpa Alvarado GDIvonne- diet controlled. 2nd degree laceration; mild uterine atony Visit Details Expected Delivery Route/Plan Labor Preferences- CB/BF classes: [] labor support person: Surendra labor intervention preferences: [] pain management options preferred: epidural cut cord/dad catch:yes : [] PP control planned: [] discussed possible routes of delivery and associated risks: [] special requests: [] Plans Covid status: [had covid, never vaccinated] Flu vaccine: [] Tdap vaccine: [] Rhogam: na LARC form signed: [] Problem list reviewed and updated with the most current plan of care details and appropriate orders placed. Relevant counseling for the gestational age provided. Continue routine care and follow up unless otherwise noted in visit notes/problem list details OB Flowsheet Initial Weight: Not Recorded Date -?-?-?--?-?-?-?-?-?-?-?-?- EGA Weight BP Urine Prot -?-?-?-?-?-?-?-?-?-?-?-?- Glucose FHR FuHt Pres Dilation -?-?-?-?-?-?-?-?-?-?-?-?- Effaced St Visit Note 08/14/21 -?-?-?-?-?-?-?-?-?-?-?-?- 9w 1d 63.163 kg 110/70 -?-?-?-?-?-?-?-?-?-?-?-?- 170 -?-?-?-?-?-?-?-?-?-?-?-?- JV- crl consiste nt with LMP. h/o GDM, early glucola ordered. 09/06/21 -?-?-?-?-?-?-?-?-?-?-?-?- 12w 3d 66.224 kg 110/80 Negati ve -?-?-?-?-?-?-?-?-?-?-?-?- Negative 150 -?-?-?-?-?-?-?-?-?-?-?-?- JV- no cramping or spotting has questions about weight gain and worried about developing diabetes again. early gct was normal. 10/08/21 -?-?-?-?-?-?-?-?-?-?-?-?- 17w 0d 67.585 kg 124/82 Negati ve -?-?-?-?-?-?-?-?-?-?-?-?- Negative 150 -?-?-?-?-?-?-?-?-?-?-?-?- SM- no vb crampi ng doing well PT consult for rectus diastesis 11/01/21 -?-?-?-?-?-?-?-?-?-?-?-?- 20w 3d 70.023 kg 104/60 Negati ve -?-?-?-?-?-?-?-?-?-?-?-?- Negative 145 -?-?-?-?-?-?-?-?-?-?-?-?- SM- no vb lof go od fm no reuglar ctx 11/27/21 -?-?-?-?-?-?-?-?-?-?-?-?- 24w 1d 71.668 kg 118/84 Negati ve -?-?-?-?-?-?-?-?-?-?-?-?- Negative 134 -?-?-?-?-?-?-?-?-?-?-?-?- -No VB, LOF. G ood FM. 28 wk labs next visit. Has US to check placenta 12/3012/27/21 -?-?-?-?-?-?-?-?-?-?-?-?- 28w 3d 73.709 kg 132/71 Negati ve -?-?-?-?-?-?-?-?-?-?-?-?- Negative 130 -?-?-?-?-?-?-?-?-?-?-?-?- JV- pt failed he r one hour (179) she wants to skip the 3 hr and just start monitoring glucose levels. She had GDM with last . has ultrasound on 12/30 to look at the placenta. 01/08/22 -?-?-?-?-?-?-?-?-?-?-?-?- 30w 1d 74.389 kg 102/70 Negati ve -?-?-?-?-?-?-?-?-?-?-?-?- Negative 146 30 Cephalic -?-?-?-?-?-?-?-?-?-?-?-?- JV- fasting orale ls are 90's-108, 2 hr pp are normal. she wants to try through the weekend and early next week to try to get fasting levels lowered and if no success will refer to Dr. Magdaleno 01/20/22 -?-?-?-?-?-?-?-?-?-?-?-?- 31w 6d 73.936 kg 120/74 -?-?-?-?-?-?-?-?-?-?-?-?- 152 32 -?-?-?-?-?-?-?-?-?-?-?-?- LC- will be star ting on insulin, awaiting insulin rx. good fm, denies lof,vb,ctx. to start NST next week. flu shot today. 02/03/22 -?-?-?-?-?-?-?-?-?-?-?-?- 33w 6d 74.956 kg 116/70 Negati ve -?-?-?-?-?-?-?-?-?-?-?-?- Negative 130 -?-?-?-?-?-?-?-?-?-?-?-?- SM- no vb lof go od fm no regular ctx BS controlled some mild increase in bedtime insulin. 02/11/22 -?-?-?-?-?-?-?-?-?-?-?-?- 35w 0d 75.41 kg 117/70 Negativ e -?-?-?-?-?-?-?-?-?--?-?-?- Negative 120 -?-?-?-?-?-?-?-?-?-?-?-?- JV- nst reactive today. on 22 nph bedtime. 02/17/22 -?-?-?-?-?-?-?-?-?-?-?-?- 35w 6d 75.296 kg 118/82 Negati ve -?-?-?-?-?-?-?-?-?-?-?-?- Negative 130 -?-?-?-?-?-?-?-?-?-?-?-?- SM- no vb lof go od fm no reg ctx 02/21/22 -?-?-?-?-?-?-?-?-?-?-?-?- 36w 3d 74.389 kg 112/72 -?-?-?-?-?-?-?-?-?-?-?-?- 130 3 -?-?-?-?-?-?-?-?-?-?-?-?- 60 -2 SM- no vb lof good fm n oregular ctx BS controlled. gbs collected 02/26/22 -?-?-?-?-?-?-?-?-?-?-?-?- 37w 1d 75.013 kg 120/73 Negati ve -?-?-?-?-?-?-?-?-?-?-?-?- Negative 130 3.5 -?-?-?-?-?-?-?-?-?-?-?-?- 80 -2 JV- reacti ve NST. GBS pos and wants membranes stripped next week. explained that if she starts labor and does not get the 4 hrs of pcn on board baby will need to be monitored for minimum 36 hrs. better to strip membranes in am and ask her to stick around town. 03/03/22 -?-?-?-?-?-?-?-?-?-?-?-?- 37w 6d 74.389 kg 115/72 Negati ve -?-?-?-?-?-?-?-?-?-?-?-?- Negative 155 36 3.5 -?-?-?-?-?-?-?-?-?-?-?-?- 80 -2 LC- reacti ve NST. membranes stripped. unchanged cervix. no consistent ctx, lof, vb. active fm. IOL scheduled for 39 weeks.36 weeks growth scan 32%. 03/06/22 -?-?-?-?-?-?-?-?-?-?-?-?- 38w 2d 74.162 kg 110/71 Negati ve -?--?-?-?-?-?-?-?-?-?-?-?- Negative 150 -?-?-?-?-?-?-?-?-?-?-?-?- MH NST only reac tive 03/08/22 -?-?-?-?-?-?-?-?-?-?-?-?- 38w 4d 73.482 kg 111/55 99/55 110/57 -?-?-?-?-?-?-?-?-?-?-?-?- -?-?-?-?-?-?-?-?-?-?-?-?- NST FHR Rate Baby A Baseline: 140 Variability:: Moderate Accelerations:: 15 x 15 Decelerations:: None NST Reactive:: Yes FHR Category:: Category I Uterine Activity:: q3-5 ROS Constitutional Constitutional: Reports systems reviewed and no addt'l complaints, except as documented ENT HEENT: Reports systems reviewed and no addt'l complaints, except as documented Cardiovascular Cardiovascular: Reports systems reviewed and no addt'l complaints, except as documented Respiratory/Chest Respiratory/Chest: Reports systems reviewed and no addt'l complaints, except as documented Gastrointestinal Gastrointestinal: Reports systems reviewed and no addt'l complaints, except as documented and nausea; Denies abdominal pain Genitourinary Genitourinary: Reports systems reviewed and no addt'l complaints, except as documented, contractions Details: present and frequency (regular ) and movement Details: present Musculoskeletal Musculoskeletal: Reports systems reviewed and no addt'l complaints, except as documented Integumentary Integumentary: Reports as per HPI Neurologic Neurologic: Reports systems reviewed and no addt'l complaints, except as documented Endocrine Endocrinology: Reports systems reviewed and no addt'l complaints, except as documented Vital Signs Vital Signs Vital Signs: 03/08/22 03:23 03/08/22 03:23 03/08/22 03:23 Temperature Temperature Source Pulse Rate 76 79 Blood Pressure 111/55 L BP Systolic 111 BP Diastolic 55 Pulse Ox 03/08/22 03:23 03/08/22 03:23 03/08/22 03:23 Temperature 97.9 F Temperature Source Temporal Pulse Rate Blood Pressure BP Systolic BP Diastolic Pulse Ox 97 03/08/22 03:28 03/08/22 03:28 03/08/22 03:49 Temperature Temperature Source Pulse Rate 77 79 Blood Pressure BP Systolic BP Diastolic Pulse Ox 96 03/08/22 03:49 03/08/22 05:33 03/08/22 05:33 Temperature Temperature Source Pulse Rate 76 Blood Pressure 99/55 L BP Systolic 99 BP Diastolic 55 Pulse Ox 95 03/08/22 05:33 03/08/22 05:33 03/08/22 06:57 Temperature 97.2 F L Temperature Source Temporal Temporal Pulse Rate Blood Pressure BP Systolic BP Diastolic Pulse Ox 03/08/22 06:58 03/08/22 06:58 03/08/22 06:57 Temperature 97.7 F L Temperature Source Pulse Rate 78 Blood Pressure 110/57 L BP Systolic 110 BP Diastolic 57 Pulse Ox Weight Weight: 73.482 kg Body Mass Index (BMI) 29.6 Physical Exam Const alert, oriented x3 and healthy appearing Constitutional Narrative: uncomfortable with contractions HEENT normocephalic and moist oral mucous membranes Head and Scalp: atraumatic Neck full ROM, no lymphadenopathy, supple and thyroid normal General: trachea midline Thyroid: thyroid normal Lymph Lymphatic: no lymphadenopathy noted Chest inspection of chest normal Resp normal respiratory effort Cardio regular rate GI normal to inspection, nondistended, normoactive bowel sounds, soft to palpation and non-tender Inspection: gravid external exam normal Bimanual Exam - Vag & Uterus: uterus non-tender Manual OB Exam: estimated gestational size appropriate, presentation cephalic, dilated, effaced and station Extremity normal to inspection General Extremity: Negative for edema Skin no rashes or lesions noted Neuro deep tendon reflexes 2+ bilaterally Motor Exam: strength 5/5 throughout and clonus absent Psych mental status grossly normal Labs Labs Labs: Blood Type A POSITIVE Antibody Screen NEGATIVE Hct 36.9 % (37-47) L Hgb 11.8 g/dL (12.0-15.0) L Pap Smear Negative Obstetrics US Syphilis Total Ab Non-reactive Rubella IgG Antibody Reactive (Nonreactive) Hep Bs Antigen Non-Reactive (Nonreactive) Chlamydia DNA (PILO) Negative (Negative) Neisseria gonorrhoeae DNA (PILO) Negative (Negative) HIV 1&2 Antibody Non-Reactive (Nonreactive) Glucose 1 Hr 50 gm 179 mg/dL (70-140) H Rhogam given: No Assessment & Plan (1) Positive GBS test: COMMENT: pcn started (2) Gestational diabetes: COMMENT: insulin at night. (novolin) NST twice weekly starting 32 weeks 36 week growth scan- 32% for wt. AC is WNL. IOL 39 weeks (3) : COMMENT: anatomy nl, Declines NIPT and carrier testing (4) Supervision of normal : COMMENT: PRR HEATHER 03/18/22 girl PC Sam (boy). Surendra (5) Diastasis of rectus abdominis: COMMENT: PT consult (6) SROM (spontaneous rupture of membranes): COMMENT: no signficiant cevical change, pitocin started, epidural PRN PLAN: Plan see a/p comments
[2022-03-08] MEDS: Penicillin G 3,000,000 Units 50 ML 100 UNITS IV ×2 (08:45→12:42)
[2022-03-08 10:06] LABS: Bedside Glucose 99 mg/dL (74-106)
[2022-03-08] MEDS: LACTATED RINGERS 500 ML 999 ML IV ×2 (10:30→13:31)
[2022-03-08] MEDS: fentaNYL-bupivacaine (epidural) 100 ML BAG EPIDURAL (11:57)
[2022-03-08] MEDS: 0.9% Saline Lock 10 ML Syringe IV (13:10)
[2022-03-08 14:46] LABS: Bedside Glucose 72 mg/dL (74-106)
[2022-03-08 14:46] LABS: Bedside Glucose 75 mg/dL (74-106)
[2022-03-08 16:25] LABS: Bedside Glucose 105 mg/dL (74-106)
[2022-03-08] MEDS: Acetaminophen 500 MG Tablet 1000 MG PO (16:29)
--- NOTE | 2022-03-08 18:02 | EX.PCM.OBRPT ---
Assessment & Plan (1) SROM (spontaneous rupture of membranes): COMMENT: no signficiant cevical change, pitocin started, epidural PRN (2) Positive GBS test: COMMENT: pcn started (3) Gestational diabetes: COMMENT: insulin at night. (novolin) NST twice weekly starting 32 weeks 36 week growth scan- 32% for wt. AC is WNL. IOL 39 weeks (4) : COMMENT: anatomy nl, Declines NIPT and carrier testing (5) Supervision of normal : COMMENT: PRR HEATHER 03/18/22 girl PC Sam (boy). Surendra (6) Diastasis of rectus abdominis: COMMENT: PT consult (7) Vaginal delivery: COMMENT: gdma2 sm 38 IAL girl opal Maternal Data Information HEATHER Calculator Estimated Delivery Date Method Current WG Current Estimate 03/18/22 LMP (Certain) 38w 4d Other Estimates 03/16/22 Ultrasound #1 38w 6d Vaginal Delivery Operative Information Date of Procedure: 03/08/22 Pre-Operative Diagnosis: IAL Post-Operative Diagnosis: same Surgery / Procedure Performed: Spontaneous Vaginal Delivery Type of Anesthesia: Epidural Special Medications: none Estimated Blood Loss: 300 Fluids Replaced: crystalloid Findings Description of Procedure: Patient began pushing and delivered the head in the JL presentation. The head was delivered atraumatically and a loose nuchal cord ?1 was identified and the infant delivered through without complication. The anterior and posterior shoulders delivered without complication followed by the rest of the infant and the infant was placed on the maternal abdomen. Delayed cord clamping was employed for approximately 60 seconds. Cord was clamped and cut and gentle traction was applied to the cord and the placenta delivered spontaneously immediately following it was noted to be intact with three-vessel cord. The perineum and vagina were inspected and noted to have a first degree laceration repaired in the usual fashion with 3-0 rapide. EBL was 300. Patient and tolerated delivery well. Presentation: JL Amniotic Membrane Rupture Type: Artificial Amniotic Fluid Description: Clear Placental Delivery Description: Spontaneous Placenta Disposition: [facility] Cord Vessel Description: 3 Vessels Cord Entanglement: None Delayed Cord Clamping: Yes Post Vaginal Delivery Medications Given After Delivery: IV Pitocin Episiotomy Description: None Laceration: Perineal Extension/lac and 1st degree Complication Complications: None Procedures Urinary/Genital [id number]: [id number] Vaginal Delivery global pkg
--- NOTE | 2022-03-08 18:04 | DCINST_ITS ---
Discharge Instructions Diet Discharge Diet: No restrictions Activity Discharge Activity: Return to Normal Activity, May Drive, May Shower and May Take a Tub Bath (in 4 weeks) May resume sexual activity in: 6-8 weeks (after seen by OB provider) Weight Bearing Status: Full weight bearing Lifting Restrictions: none Dressing / Incision Call your doctor if you observe: Fever of 101 or Higher, Inability to urinate, Using more than 1 pad per hour (for more than 2 hours in a row or more), Shortness of breath, Dizziness, Chest pain and - (headache not controlled with tylenol, change in vision) Follow Up Care When: in 6 weeks for visit, call the office to make the appointment. If you had elevated blood pressures call the office to be seen within 1 week. Test Results: Test results from this visit will be discussed in further detail at your follow- up appointment, if applicable. Discharge Plan Admission Admit Date/Time: 03/08/22 04:05 Attending Provider: Bonnie Diaz Primary Care Provider: Care Physician,Mary Primary Discharge Orders/Prescriptions Prescriptions: No Action vitamin #56-iron 35 mg and 5 mg-folic acid 1 mg-dha capsule 35 mg iron-5 mg iron-1 mg capsule 1 cap PO DAILY (DME) lancets [BD Ultra Fine Lancets] 33 gauge misc See Rx Instructions .MEDSUPPLY Qty: 100 8RF Rx Instructions: As directed (DME) blood-glucose meter Misc See Rx Instructions .MEDSUPPLY Qty: 1 0RF Rx Instructions: As directed- Test fasting and 2 hours after meals (DME) Blood Glucose Test Strip See Rx Instructions .Route Qty: 50 8RF Rx Instructions: As directed (DME) pen needle, diabetic [BD Ultra-Fine Meeta Pen Needle] 32 gauge x 5/32 needle See Rx Instructions .ROUTE .MEDSUPPLY Qty: 50 1RF Rx Instructions: As directed Novolin N Flexpen 100 unit/mL (3 mL) insulin pen 27 unit subcut QPM Rx Instructions: Increase 2 units QPM (DME) Blood Glucose Test Strip See Rx Instructions .Route Qty: 150 4RF Rx Instructions: As directed Referrals / Follow Up: Care Physician,No Primary [Primary Care Provider] - Disposition Disposition (needs filled in before D/C Order can be placed): Home, Self Care
[2022-03-08] MEDS: Naproxen 500 MG Tablet PO (21:57)
[2022-03-09] MEDS: Acetaminophen 500 MG Tablet 1000 MG PO ×2 (00:09→10:13)
[2022-03-09 00:42] VITALS: BP 96/58; PULSE 64; RESP 14; TEMP 36.5
[2022-03-09 05:22] VITALS: BP 115/68; PULSE 64; RESP 16; TEMP 36.3
[2022-03-09] MEDS: Naproxen 500 MG Tablet PO (06:15)
[2022-03-09 08:00] VITALS: BP 100/60; PULSE 77; RESP 16; TEMP 36.3
[2022-03-09 08:30] LABS: Bedside Glucose 91 mg/dL (74-106)
--- NOTE | 2022-03-09 10:11 | PCM.PN.OB ---
Subjective Subjective Patient doing well without complaints. Tolerating PO. Ambulating and voiding without difficulty. feeding well. Denies chest pain, shortness of breath, calf pain/swelling, fevers, chills, lightheadedness. Objective Data Objective Data Vital Signs: Vital Signs Temp Pulse Resp BP Pulse Ox O2 Del Method 97.4 F L 77 16 100/60 98 Room Air 03/09/22 08:00 03/09/22 08:00 03/09/22 08:00 03/09/22 08:00 03/08/22 15:17 03/09/22 05:22 Oxygen Delivery Method Room Air Weight: 73.482 kg Body Mass Index (BMI) 29.6 Intake & Output: Intake and Output for Last 24 Hours 03/07/22 03/08/22 03/09/22 23:59 23:59 23:59 Intake Total 2455.00 / 2455.00 Output Total 500 / 500 Balance 1955.00 / 1955.00 Lab / Micro Data Result Diagrams: 03/08/22 04:20 Labs: Laboratory Results - last 24 hr 03/08/22 13:14: POC Glucose 72 L 03/08/22 14:27: POC Glucose 75 03/08/22 15:58: POC Glucose 105 03/09/22 05:57: POC Glucose 91 ROS Constitutional Constitutional: Reports systems reviewed and no addt'l complaints, except as documented Cardiovascular Cardiovascular: Reports systems reviewed and no addt'l complaints, except as documented Respiratory/Chest Respiratory/Chest: Reports systems reviewed and no addt'l complaints, except as documented Gastrointestinal Gastrointestinal: Reports systems reviewed and no addt'l complaints, except as documented Physical Exam Const alert, oriented x3 and no apparent distress HEENT Head and Scalp: atraumatic Resp normal respiratory effort GI soft to palpation and non-tender Bimanual Exam - Vag & Uterus: uterus non-tender Uterus Palpation: uterus fundus firm (below Umbilicus) Assessment & Plan (1) Vaginal delivery: COMMENT: gdma2 sm 38 IAL girl opal PLAN: Plan s/p PPD # 1 1. routine post delivery care 2. breast feeding- support given 3. rh positive 4. rubella immune
[2022-03-09 11:44] VITALS: BP 98/66; PULSE 80; RESP 16; TEMP 36.5
== END 2022-03-09 15:50 | disposition home or self-care (01) | DRG 807 ==
LOC: WPOUT 04:09 → WP 04:09
PROVIDERS: Admitting Provider Obstetrics & Gynecology; Visit Provider Obstetrics & Gynecology
DX: O24.424 Gestational diabetes mellitus in childbirth, insulin controlled (principal); Z37.0 Single live birth; B95.1 Streptococcus, group B, as the cause of diseases classified elsewhere; O69.81X0 Labor and delivery complicated by cord around neck, without compression, not applicable or unspecified; Z3A.38 38 weeks gestation of pregnancy; O70.0 First degree perineal laceration during delivery; O99.824 Streptococcus B carrier state complicating childbirth
CPT/HCPCS: 59025; 59050; 82962; 84112; 85025; 86850; 86900; 86901; 99218; J7120; A4216; G0378

== ENCOUNTER → 2022-04-18 | Outpatient (CLI) | payer OTHER, SELFPAY ==
[2022-04-25 22:51] LABS: HPV Reflexed? NOT INDICATED
== END | disposition home or self-care (01) ==
PROVIDERS: Visit Provider Obstetrics & Gynecology
DX: Z12.4 Encounter for screening for malignant neoplasm of cervix (principal)
CPT/HCPCS: 88175; G0145

== ENCOUNTER → 2023-09-21 | Outpatient (CLI) | payer OTHER, SELFPAY ==
[2023-09-21 11:29] LABS: Absolute Lymphocyte Count 2.16 X10^3/uL (0.83-4.51); Absolute Neutrophil Count 6.5 X10^3/uL (2.0-7.7); Basophil# 0.03 X10^3/uL; Basophil% 0.3 % (0-1); Eosinophil# 0.13 X10^3/uL; Eosinophils% 1.4 % (0-5); Hematocrit 39.1 % (37-47); Hemoglobin 13.3 g/dL (12.0-15.0); Lymphocyte # 2.16 X10^3/ul (0.83-4.51); Mean Corpuscular Hgb 30.4 pg (27.0-32.0); Mean Corpuscular Volume 89.3 fL (81-99); Mean Platelet Vol. 9.6 fl (6.2-12.0); Monocyte# 0.49 X10^3/uL; Monocyte% 5.2 % (0-10); NRBC Flagged by Analyzer 0 % (0-5); Neutrophil # 6.53 X10^3/uL (2.7-7.7); Neutrophil % 69.7 % (47-70); Platelet Count 213 K/mm3 (150-450); RBC Distribution Width CV 12.2 % (11.6-14.6); RBC Distribution Width SD 40.2 fl (35.1-43.9); Red Blood Count 4.38 M/mm3 (4.2-5.4); White Blood Count 9.4 K/mm3 (4.4-11.0)
[2023-09-21 12:27] LABS: HIV - WCH Non-Reactive (Nonreactive); Hepatitis B Surface Antigen Non-Reactive (Nonreactive); Hepatitis C Antibody Non-Reactive (Nonreactive); Rubella IgG Reactive (Nonreactive); Syphilis Antibodies Non-reactive
[2023-09-21 12:38] LABS: Hemoglobin A1c 4.9 % (3.8-5.6)
[2023-09-23 06:09] LABS: Chlamydia By Nucleic Acid AMP Negative (Negative); Gonococcus By Nucleic Acid AMP Negative (Negative)
== END | disposition home or self-care (01) ==
PROVIDERS: PCP Internal Medicine; Referring Provider Obstetrics & Gynecology; Visit Provider Obstetrics & Gynecology
DX: O09.299 Supervision of pregnancy with other poor reproductive or obstetric history, unspecified trimester (principal); Z86.32 Personal history of gestational diabetes; Z3A.00 Weeks of gestation of pregnancy not specified
CPT/HCPCS: 36415; 83036; 85025; 86703; 86762; 86780; 86803; 86850; 86900; 86901; 87077; 87086; 87088; 87186; 87340; 87491; 87591

== ENCOUNTER → 2024-01-08 | Outpatient (CLI) | payer OTHER, SELFPAY ==
--- OUTSIDE RECORDS SUMMARY | 2024-01-08 08:14 | XMS RPT_ITS | CCD ---
Author Organization [facility] Team Providers Care Ladle Repairman Name Role Phone CYNDIE HOOKS L Unavailable Unavailable [facility] Unavailable Unavailable CYNDIE HOOKS (HOPPER ATTENDANT-C) Unavailable Unavailab [facility] Unavailable MATTHIAS PANDYA Referring Unavailable MATTHIAS PANDYA Attending Unavailable Problems Problem Classification Problem Date Documented Da te Episodic/Chronic Other lower respiratory disease (1 source) Cough Onset: 06-28-2017 Episodic Unclassified (1 source) Unknown / UNK(Unknown) Onset: 06-28-2017 Results Test Name Value Interpretation Reference Range Facility CNOV 06-28-2017 CNOV Office Visit (EXPTALAG) JOSH HAIRSTON ([id number]) 1990 FDate Time Provider Department06/28/17 12:45 PM CYNDIE HOOKS (HOPPER ATTENDANT-C) EXPTALAG During your visit today, we recorded the following information about you: Temperature Pulse Respiration Blood pressure 99.8 degrees 116/minute 16/minute 119/60 Weight Height 52.2 kg 1.549 Luz Hooks APRN.ACTUARIAL TECHNICIAN 06/28/2017 1:11 PM SignedThe [facility], [place] [address]Uphxgqnvy DepartmentPhone: Elcgtsets: AssessmentCOUGH:Your doctor wants you to have this information about coughing. The body has acough reflex which helps expel mucous secretions and irritants from the lungand airway passages. Cough spasms are periods of continuous coughing lastingseveral minutes. Most coughs is caused by virus infections which may last forup to 2-3 weeks. Coughing helps to protect the lung from pneumonia. Apersistent cough lasting longer than 4-6 weeks requires medical evaluation byyour primary care doctor.Treatment of cough includes measures to loosen the cough and thin the mucous.Warm liquids, cough drops, and nonprescription cough medicine may help reducedry hacking cough. Use a humidifier if necessary as dry air can make coughsworse. Ultrasonic humidifiers are especially useful as they kill molds andmany bacteria. Some cough medicines have antihistamines, decongestants, oralcohol in them; there is no proof that any of these help control cough.Prescription cough medicine or those with dextromethorphan (DM) should bereserved for dry coughs that prevent sleep or cause spasms or chest pain. Avoidany exposure to cigarette smoke as this will worsen the cough or make it lastmuch longer. Call your doctor right away if you or your child have increasedbreathing difficulty, a high fever, a cough that lasts longer than 3 weeks, orother serious complaints.If you begin to experience a severe reaction or complication from the treatmentyou received at the [facility], please go to the nearest emergency room forfurther evaluation.? Follow up with your primary care doctor in 2-3 days? Report to Emergency Department with any worsening of symptoms orlife-threatening concerns? Warning signs of worsening conditions explained to patient? Educational information regarding today's complaint given to patient? Patient left in stable condition after questions answered? Patient verbalized understandingCyndie Hooks APRN.CNP 06/28/2017 2:28 PM SignedSubjectivePatient is a 26 year old female presenting with cough. The history is providedby the patient.CoughThis is a new problem. Episode onset: Per patient, symptoms of cough, andchills started Thursday afternoon. The problem has not changed since onset.Thecough is non-productive. Maximum temperature: No measured temperature, butstated that she felt warm. Associated symptoms include chills, headaches andshortness of breath. Pertinent negatives include no sweats, no ear congestion,no ear pain, no rhinorrhea, no sore throat, no myalgias and no wheezing.Treatments tried: Patient has tried taking Advil and Mucinex. The treatmentprovided no relief. She is not a smoker. Her past medical history issignificant for bronchitis. Her past medical history does not include pneumoniaor asthma.Review of SystemsConstitutional: Positive for chills. Negative for diaphoresis, fever andmalaise/fatigue.HENT: Positive for congestion (sinus). Negative for ear pain, rhinorrhea andsore throat.Respiratory: Positive for cough and shortness of breath. Negative for sputumproduction and wheezing.Gastrointestinal: Positive for vomiting (Per patient, had a vomiting episodedue to coughing). Negative for abdominal pain and nausea.Musculoskeletal: Negative for myalgias.Neurological: Positive for headaches. Negative for weakness.ObjectivePhysical ExamConstitutional: She is oriented to person, place, and time and well-developed,well-nourished, and in no distress. Vital signs are normal. She does not have asickly appearance. No distress.HENT:Head: Normocephalic.Right Ear: Hearing, external ear and ear canal normal. No drainage, swelling ortenderness. Tympanic membrane is not injected, not perforated, not erythematousand not bulging. A middle ear effusion (cloudy) is present. No decreasedhearing is noted.Left Ear: Hearing, external ear and ear canal normal. No drainage, swelling ortenderness. Tympanic membrane is not injected, not perforated, not erythematousand not bulging. A middle ear effusion (cloudy) is present. No decreasedhearing is noted.Nose: Mucosal edema and rhinorrhea present. Right sinus exhibits no maxillarysinus tenderness and no frontal sinus tenderness. Left sinus exhibits nomaxillary sinus tenderness and no frontal sinus tenderness.Mouth/Throat: Uvula is midline, oropharynx is clear and moist and mucousmembranes are normal. No oropharyngeal exudate, posterior oropharyngeal edemaor posterior oropharyngeal erythema.Eyes: Conjunctivae and lids are normal. Right eye exhibits no discharge. Lefteye exhibits no discharge. Right conjunctiva is not injected. Left conjunctivais not injected.Neck: Trachea normal, normal range of motion, full passive range of motionwithout pain and phonation normal. Neck supple.Cardiovascular: Normal rate, regular rhythm, S1 normal, S2 normal and normalheart sounds.No murmur heard.Pulmonary/Chest: Effort normal. No respiratory distress. She has no decreasedbreath sounds. She has no wheezes. She has no rales. She exhibits notenderness.Abdominal: She exhibits no distension and no mass. There is no rebound and noguarding.Musculoskeletal: Normal range of motion.Lymphadenopathy: She has cervical adenopathy. Right cervical: Deep cervical adenopathy present. No superficial cervicaladenopathy present. Left cervical: Deep cervical adenopathy present. No superficial cervicaladenopathy present.Neurological: She is alert and oriented to person, place, and time. Gaitnormal.Skin: She is not diaphoretic.Psychiatric: Mood, memory, affect and judgment normal.Nursing note and vitals reviewed.ASSESSMENT/PLAN:1. Cough - ICD9: 786.2, ICD10: R05 (primary diagnosis)- BENZONATATE 100 MG CAPSULE2. Sinus congestion - ICD9: 478.19, ICD10: R09.81- FLUTICASONE 50 MCG/ACTUATION NASAL SPRAY,SUSPENSION3. SOB (shortness of breath) - ICD9: 786.05, ICD10: R06.02- ALBUTEROL SULFATE HFA 90 MCG/ACTUATION AEROSOL INHALERCyndie Hooks APRN.CNPReferring Provider: SELF [[id number]]Allergies As of Date: 06/28/2017(No Known Allergies)Date Reviewed: 06/28/2017Reviewed by: Cyndie LouisSeat Joiner Chainstitch-CIsaura Hooks - Fully AssessedPrimary Visit Diagnosis:Cough [R05] Other Visit Diagnoses:Sinus congestion [R09.81] SOB (shortness of breath) [R06.02]Order(s):benzonatate (TESSALON PERLE) 100 mg capsuleTake one to two tablets by mouth up to three times a day as needed for cough. Do not take more than six in 24 hoursDisp: 30 capsuleRfl: 0 fluticasone (FLONASE) 50 mcg/actuation nasal sprayUse 2 Sprays in each nostril once daily.Disp: 1 BottleRfl: 0 albuterol HFA (PROAIR HFA) 90 mcg/actuation inhalerInhale 2 Puffs as instructed every 4 hours as needed.Disp: 1 InhalerRfl: 0Prescriptions as of 06/28/2017 Sig: BENZONATATE 100 MG CAPSULE Take one to two tablets by mo* FLUTICASONE 50 MCG/ACTUATION * Use 2 Sprays in each nostril * ALBUTEROL SULFATE HFA 90 MCG/* Inhale 2 Puffs as instructed * LEVONORGESTREL-ETHINYL ESTRAD* Take 1 tablet by mouth once d*Problem List As Of Date 06/28/2017 Noted Resolved Cough [R05] INVALID FOR* Other instructions from your clinician: The [facility] [address] [place], [place] [address] Emergency Department Diagnosis: Assessment COUGH: Your doctor wants you to have this information about coughing. The body has a cough reflex which helps expel mucous secretions and irritants from the lung and airway passages. Cough spasms are periods of continuous coughing lasting several minutes. Most coughs is caused by virus infections which may last for up to 2-3 weeks. Coughing helps to protect the lung from pneumonia. A persistent cough lasting longer than 4-6 weeks requires medical evaluation by your primary care doctor. Treatment of cough includes measures to loosen the cough and thin the mucous. Warm liquids, cough drops, and nonprescription cough medicine may help reduce dry hacking cough. Use a humidifier if necessary as dry air can make coughs worse. Ultrasonic humidifiers are especially useful as they kill molds and many bacteria. Some cough medicines have antihistamines, decongestants, or alcohol in them; there is no proof that any of these help control cough. Prescription cough medicine or those with dextromethorphan (DM) should be reserved for dry coughs that prevent sleep or cause spasms or chest pain. Avoid any exposure to cigarette smoke as this will worsen the cough or make it last much longer. Call your doctor right away if you or your child have increased breathing difficulty, a high fever, a cough that lasts longer than 3 weeks, or other serious complaints. If you begin to experience a severe reaction or complication from the treatment you received at the [facility], please go to the nearest emergency room for further evaluation. ? Follow up with your primary care doctor in 2-3 days ? Report to Emergency Department with any worsening of symptoms or life-threatening concerns ? Warning signs of worsening conditions explained to patient ? Educational information regarding today's complaint given to patient ? Patient left in stable condition after questions answered ? Patient verbalized understandingPrescriptions ordered this encounter Disp Refills Start End BENZONATATE 100 MG CAPSULE 30 c* 0 06/28/2017 Sig: Take one to two tablets by mouth up to three times a day as needed for cough. Do not take more than six in 24 hours FLUTICASONE 50 MCG/ACTUATION NASAL S* 1 Manjinder* 0 06/28/2017 Route: EACH NOSTRIL Sig: Use 2 Sprays in each nostril once daily. ALBUTEROL SULFATE HFA 90 MCG/ACTUATI* 1 In* 0 06/28/2017 Route: INHALATION Sig: Inhale 2 Puffs as instructed every 4 hours as needed.Medications Discontinued During This Encounter spironolactone (ALDACTONE) 50 mg tab* 06/28/2017 Class: Historical Med Route: ORAL Sig: Take 50 mg by mouth once daily. Disc: Discontinued by PatientEncounter Number: [id number] Status:Closed by CYNDIE JENKINS on 06/28/17 [facility] PROGRESSon 06-28-2017 PROGRESS HNO ID: [id number] thor: Cyndie Schrader) SimmonsService: (none)Author Type: Nurse PractitionerType: Progress NotesFiled: 06/28/2017 2:28 PMNote Text:SubjectivePatient is a 26 year old female presenting with cough. The history isprovided by the patient.CoughThis is a new problem. Episode onset: Per patient, symptoms of cough, andchills started Thursday afternoon. The problem has not changed sinceonset.The cough is non-productive. Maximum temperature: No measuredtemperature, but stated that she felt warm. Associated symptoms includechills, headaches and shortness of breath. Pertinent negatives include nosweats, no ear congestion, no ear pain, no rhinorrhea, no sore throat, nomyalgias and no wheezing. Treatments tried: Patient has tried taking Adviland Mucinex. The treatment provided no relief. She is not a smoker. Herpast medical history is significant for bronchitis. Her past medicalhistory does not include pneumonia or asthma.Review of SystemsConstitutional: Positive for chills. Negative for diaphoresis, fever andmalaise/fatigue.HENT: Positive for congestion (sinus). Negative for ear pain, rhinorrheaand sore throat.Respiratory: Positive for cough and shortness of breath. Negative forsputum production and wheezing.Gastrointestinal: Positive for vomiting (Per patient, had a vomitingepisode due to coughing). Negative for abdominal pain and nausea.Musculoskeletal: Negative for myalgias.Neurological: Positive for headaches. Negative for weakness.ObjectivePhysical ExamConstitutional: She is oriented to person, place, and time andwell-developed, well-nourished, and in no distress. Vital signs arenormal. She does not have a sickly appearance. No distress.HENT:Head: Normocephalic.Right Ear: Hearing, external ear and ear canal normal. No drainage,swelling or tenderness. Tympanic membrane is not injected, not perforated,not erythematous and not bulging. A middle ear effusion (cloudy) ispresent. No decreased hearing is noted.Left Ear: Hearing, external ear and ear canal normal. No drainage,swelling or tenderness. Tympanic membrane is not injected, not perforated,not erythematous and not bulging. A middle ear effusion (cloudy) ispresent. No decreased hearing is noted.Nose: Mucosal edema and rhinorrhea present. Right sinus exhibits nomaxillary sinus tenderness and no frontal sinus tenderness. Left sinusexhibits no maxillary sinus tenderness and no frontal sinus tenderness.Mouth/Throat: Uvula is midline, oropharynx is clear and moist and mucousmembranes are normal. No oropharyngeal exudate, posterior oropharyngealedema or posterior oropharyngeal erythema.Eyes: Conjunctivae and lids are normal. Right eye exhibits no discharge.Left eye exhibits no discharge. Right conjunctiva is not injected. Leftconjunctiva is not injected.Neck: Trachea normal, normal range of motion, full passive range of motionwithout pain and phonation normal. Neck supple.Cardiovascular: Normal rate, regular rhythm, S1 normal, S2 normal andnormal heart sounds.No murmur heard.Pulmonary/Chest: Effort normal. No respiratory distress. She has nodecreased breath sounds. She has no wheezes. She has no rales. Sheexhibits no tenderness.Abdominal: She exhibits no distension and no mass. There is no rebound andno guarding.Musculoskeletal: Normal range of motion.Lymphadenopathy: She has cervical adenopathy. Right cervical: Deep cervical adenopathy present. No superficialcervical adenopathy present. Left cervical: Deep cervical adenopathy present. No superficialcervical adenopathy present.Neurological: She is alert and oriented to person, place, and time. Gaitnormal.Skin: She is not diaphoretic.Psychiatric: Mood, memory, affect and judgment normal.Nursing note and vitals reviewed.ASSESSMENT/PLAN:1. Cough - ICD9: 786.2, ICD10: R05 (primary diagnosis)- BENZONATATE 100 MG CAPSULE2. Sinus congestion - ICD9: 478.19, ICD10: R09.81- FLUTICASONE 50 MCG/ACTUATION NASAL SPRAY,SUSPENSION3. SOB (shortness of breath) - ICD9: 786.05, ICD10: R06.02- ALBUTEROL SULFATE HFA 90 MCG/ACTUATION AEROSOL INHALERWanda Joseph, THERMAL MOLDER.ACTUARIAL TECHNICIAN Normal [facility] OBSOLETEon 03-17-2017 OBSOLETE Refill (WOOB) JOSH FLORENTINO ([id number]) 1990 IPADate Time Provider Department03/17/17 MELI DAVIS WOOB During your visit today, we recorded the following information about you:Ariana Campa RN 03/17/2017 1:50 PM SignedFormer patient. Moved out of town and has annual scheduled there in May.Will be out of OCP prior to that. Asking for refill.Patient has been identified by name and date of : YesRX INSTRUCTIONS:Patient aware RX will be sent to pharmacy. No need to notify patient.Ariana Reich As of Date: 03/17/2017(No Known Allergies)Date Reviewed: 04/17/2016Reviewed by: Dionne Pavon Ma - Fully AssessedReason for Visit: Refill Request [94]Visit Diagnosis:General counseling for prescription of oral contraceptives [Z30.09]Order(s):Levonorgestre l-Ethinyl Estrad (AVIANE) 0.1mg - 20mcg per tabletTake 1 tablet by mouth once daily.Disp: 3 PackageRfl: 0Prescriptions as of 03/17/2017 Sig: LEVONORGESTREL-ETHINYL ESTRAD* Take 1 tablet by mouth once d* SPIRONOLACTONE 50 MG TABLET Take 50 mg by mouth once leoncio*Problem List As Of Date: 03/17/2017(None)Prescriptions ordered this encounter Disp Refills Start End LEVONORGESTREL-ETHINYL ESTRADIOL 0.1* 3 Pa* 0 03/17/2017 Route: ORAL Sig: Take 1 tablet by mouth once daily.Medications Discontinued During This Encounter Levonorgestrel-Ethinyl Estrad (DAVID* 3 Pa* 4 04/17/2016 03/17/2017 Route: ORAL Sig: Take 1 tablet by mouth once daily. Disc: Reason for discontinue is not on file. Status:Closed by MELI VEE MD on 03/17/17 Normal [facility] Encounters Encounter Date Encounter Type Care Provider Facility Start: 11-24-2023 End: 11-24-2023 ambulatory [place] OCAMPO [facility] Start: 06-28-2017 Ambulatory CYNDIE HOOKS Facilit y:[facility] Payers Date Payer Category Payer Unknown [id number] Private Health Insurance [id number] Unknown [id number] Summary Purpose Family History No Family History Records FoundNo Family History Records FoundNo Family History Records FoundNo Family History Records Found Advance Directives No Advanced Directives Records FoundNo Advanced Directives Records FoundNo Advanced Directives Records FoundNo Advanced Directives Records Found Additional Source Comments INFORMATION SOURCE (unrecogn ized section and content) DATE CREATED AUTHOR 09/03/2017 [facility] DATE CREATED AUTHOR AUTHOR'S ORGANIZ ATION 09/08/2017 [facility] DATE CREATED AUTHOR AUTHOR'S ORGANIZ ATION 09/17/2017 [facility] DATE CREATED AUTHOR AUTHOR'S GABRIELLE ATION 11/25/2023 [facility] FOR RECORDS PERTAINING TO PATIENTS WHO ARE OR HAVE BEEN ENROLLED IN A CHEMICAL DEPENDENCY/SUBSTANCEABUSE PROGRAM, SOME INFORMATION MAY BE OMITTED. This clinical summary was aggregated from multiple sources. Caution should be exercised in using it in the provision of clinical care. This summary normalizes information from multiple sources, and as a consequence, information in this document may materially change the coding, format and clinical context of patient data. In addition, data may be omitted in some cases. CLINICAL DECISIONS SHOULD BE BASED ON THE PRIMARY CLINICAL RECORDS. [facility]. provides no warranty or guarantee of the accuracy or completeness of information in this document.
[2024-01-08 08:25] LABS: Absolute Lymphocyte Count 1.96 X10^3/uL (0.83-4.51); Absolute Neutrophil Count 6.5 X10^3/uL (2.0-7.7); Basophil# 0.02 X10^3/uL; Basophil% 0.2 % (0-1); Eosinophil# 0.08 X10^3/uL; Eosinophils% 0.9 % (0-5); Hematocrit 36.9 % (37-47); Hemoglobin 12.4 g/dL (12.0-15.0); Lymphocyte # 1.96 X10^3/ul (0.83-4.51); Lymphocyte % 21.5 % (19-41); Mean Corp Hgb Conc 33.6 g/dL (32-36); Mean Corpuscular Hgb 30.5 pg (27.0-32.0); Mean Corpuscular Volume 90.9 fL (81-99); Mean Platelet Vol. 10.2 fl (6.2-12.0); Monocyte# 0.49 X10^3/uL; Monocyte% 5.4 % (0-10); NRBC Flagged by Analyzer 0 % (0-5); Neutrophil # 6.48 X10^3/uL (2.7-7.7); Neutrophil % 71.2 % (47-70); Platelet Count 147 K/mm3 (150-450); RBC Distribution Width CV 12.8 % (11.6-14.6); RBC Distribution Width SD 41.8 fl (35.1-43.9); Red Blood Count 4.06 M/mm3 (4.2-5.4); White Blood Count 9.1 K/mm3 (4.4-11.0)
[2024-01-08 08:50] LABS: Glucose Challenge Gest 1H 50g 137 mg/dL (70-140)
[2024-01-08 09:18] LABS: HIV - WCH Non-Reactive (Nonreactive); Syphilis Antibodies Non-reactive
== END | disposition home or self-care (01) ==
LOC: LAB 08:01
PROVIDERS: PCP Internal Medicine; Referring Provider Registered Nurse; Visit Provider Registered Nurse
DX: O09.90 Supervision of high risk pregnancy, unspecified, unspecified trimester (principal); Z13.1 Encounter for screening for diabetes mellitus; Z3A.00 Weeks of gestation of pregnancy not specified
CPT/HCPCS: 36415; 82950; 85025; 86703; 86780

== ENCOUNTER → 2024-02-22 | Outpatient (CLI) | payer OTHER, SELFPAY ==
[2024-02-22 11:41] LABS: Absolute Lymphocyte Count 1.96 X10^3/uL (0.83-4.51); Absolute Neutrophil Count 6.7 X10^3/uL (2.0-7.7); Basophil# 0.04 X10^3/uL; Basophil% 0.4 % (0-1); Eosinophil# 0.07 X10^3/uL; Eosinophils% 0.7 % (0-5); Hematocrit 37.6 % (37-47); Hemoglobin 12.6 g/dL (12.0-15.0); Lymphocyte # 1.96 X10^3/ul (0.83-4.51); Lymphocyte % 20.5 % (19-41); Mean Corp Hgb Conc 33.5 g/dL (32-36); Mean Corpuscular Hgb 31.1 pg (27.0-32.0); Mean Corpuscular Volume 92.8 fL (81-99); Mean Platelet Vol. 10.6 fl (6.2-12.0); Monocyte# 0.56 X10^3/uL; Monocyte% 5.9 % (0-10); NRBC Flagged by Analyzer 0 % (0-5); Neutrophil # 6.65 X10^3/uL (2.7-7.7); Neutrophil % 69.7 % (47-70); Platelet Count 134 K/mm3 (150-450); RBC Distribution Width CV 13.8 % (11.6-14.6); RBC Distribution Width SD 46.5 fl (35.1-43.9); Red Blood Count 4.05 M/mm3 (4.2-5.4); White Blood Count 9.6 K/mm3 (4.4-11.0)
== END | disposition home or self-care (01) ==
LOC: BWCLAB 09:03
PROVIDERS: Nurse Practitioner Women's Health; PCP Internal Medicine; Referring Provider Advanced Practice Midwife; Visit Provider Advanced Practice Midwife
DX: D69.6 Thrombocytopenia, unspecified (principal)
CPT/HCPCS: 36415; 85025

== ENCOUNTER 2024-04-06 17:17 | Inpatient (IN) | payer OTHER, SELFPAY ==
[2024-04-06] VITALS (48 sets, daily range): BP systolic 101–131; BP diastolic 55–79; PULSE 68–96; RESP 15–16; TEMP 36.4–36.9; O2SAT 87–100; BMI 32.8
--- NOTE | 2024-04-06 17:39 | HP.PCM.OB_ITS ---
HPI - General General Date of Admission: 04/06/24 Date of Service: 04/06/24 HPI Narrative JOSH HAIRSTON, is a 33 F who presents to unit in active labor. cervical exam changed from this morning to /-1. GBS positive. PCN ordered Maternal Data Information HEATHER Calculator Estimated Delivery Date Method Current WG Current Estimate 04/20/24 Ultrasound #1 38w 0d Other Estimates 04/27/24 LMP (Certain) 37w 0d Final HEATHER: 04/20/24 Final HEATHER Source: US >20 weeks Gestational age: 38.0 [facility] Medical History Umbilical hernia Diabetes in Carpal tunnel syndrome Vaginal delivery Positive GBS test Low-lying placenta in second trimester Home Medications ?Medication ?Instructions ?Recorded ?Last Taken ?Type prenat.vits,bartolo,diw-ckwe-drfps 1 tab PO DAILY 05/26/22 04/05/24 08:00 History insulin syringe-needle U-100 1 mL #100 ea 01/15/24 Unknown Rx 28 gauge x 1/2 (BD Insulin Syringe Micro-Fine) lancets 30 gauge (Droplet Lancets) #200 ea 01/15/24 Unknown Rx blood sugar diagnostic (Blood #120 ea 01/21/24 Unknown Rx Glucose Test strips) insulin glargine 100 unit/mL (3 30 unit subcut HS 04/06/24 04/05/24 22:00 History mL) subcutaneous pen (Lantus Solostar U-100 Insulin) Allergy/AdvReac Type Severity Reaction Status Date / Time No Known Allergies Allergy Verified 04/06/24 17:15 Family History Grandmother Diabetes Grandfather Parkinsons disease CAD (coronary artery disease) Cancer melanoma Hypertension Hyperlipidemia Myocardial infarction Heart disease Brother Anxiety Thyroid cancer Mother Hyperlipidemia Surgical History No pertinent past surgical history Social History adopted: No household members: children number of children: 2 current occupational status: employed current occupation: Speech-Language Pathologist current occupational exposures/hazards: No pets and animals: Yes history of recent travel: No sexually active: Yes Smoking Status: Never smoker Electronic Cigarette Use: not used second hand exposure: No alcohol intake: former details: Not while substance use type: does not use well-balanced diet: daily or most days caffeine: Yes Type: tea eating out: 1-3 times/week during the past year weight has: increased > 10 lbs what type of physical activity do you participate in: bicycling and weight training frequency: 3-4 times per week duration: 15-30 minutes/day jay jay/orthodox: Voodoo seatbelt use: always do you feel safe at home: Yes additional social history: Surendra- Spiritual Care Coordinator Patient is a speech therapist History 3 Elective abortions Hx Para 2 Spontaneous abortions Hx # Term Pregnancies Ectopic pregnancies Hx # Pregnancies Multiple births # of living children 2 Past Pregnancies Del. Date Name GA/Weeks Outcome Route Bth Weight Gen Labor Lgth Anesthesia Del Locatn Provider FOB 03/22/20 [place] 38 live - full term 8lbs 2oz Male epi dural [facility] GP 03/08/22 [place] 38 live - full term 6#4oz Female epidu ral [facility] Dr. Diaz Delivery Date: 03/22/20 Last Updated by: Shilpa Alvarado Ivonne- diet controlled. 2nd degree laceration; mild uterine atony Delivery Date: 03/08/22 Last Updated by: Kay Dexter [place] Visit Details Expected Delivery Route/Plan Labor Preferences- CB/BF classes: no labor support person: Surendra labor intervention preferences: [] pain management options preferred: epidural cut cord/dad catch: yes : yes PP control planned: discussed discussed possible routes of delivery and associated risks: [] special requests: [] Plans .Covid status: [] Flu vaccine: given Tdap vaccine: given Rhogam: NA LARC form signed: yes movement and labor precautions reviewed. Problem list reviewed and updated with the most current plan of care details and appropriate orders placed. Relevant counseling for the gestational age provided. Continue routine care and follow up unless otherwise noted in visit notes/problem list details OB Flowsheet Initial Weight: 145 lb Date -?-?-?-?-?-?-?-?-?-?-?-?- EGA Weight BP Urine Prot -?-?-?-?-?-?-?-?-?-?-?-?- Glucose FHR FuHt Pres Dilation -?-?-?-?-?-?-?-?-?-?-?-?- Effaced St Visit Note 09/21/23 -?-?-?-?-?-?-?-?-?-?-?-?- 9w 5d 145 lb (+0 oz) 112/69 -?-?-?-?-?-?-?-?-?-?-?-?- 144 -?-?-?-?-?-?-?-?-?-?-?-?- JV- CRL measurin g 1 week ahead. new heather given. declines NIPT. 10/16/23 -?-?-?-?-?-?-?-?-?-?-?-?- 13w 2d 147 lb (+2 lb) 117/76 Negative -?-?-?-?-?-?-?-?-?-?-?-?- Negative 160 -?-?-?-?-?-?-?-?-?-?-?-?- KW- no vb/crampi ng. US ordered. doing well. 11/13/23 -?-?-?-?-?-?-?-?-?-?-?-?- 17w 2d 151 lb 8 oz (+6 lb 8 oz) 123/78 Negative -?-?-?-?-?-?-?-?-?-?-?-?- Negative 145 -?-?-?-?-?-?-?-?-?-?-?-?- KW- work in for DFM. FHT easily found with doppler. reassurance given 11/20/23 -?-?-?-?-?-?-?-?-?-?-?-?- 18w 2d 152 lb 2 oz (+7 lb 2 oz) 114/76 Negative -?-?-?-?-?-?-?-?-?-?-?-?- Negative 153 -?-?-?-?-?-?-?-?-?-?-?-?- LC- no vb/crampi ng. has anatomy next thursday. feeling movement daily. 12/18/23 -?-?-?-?-?-?-?-?-?-?-?-?- 22w 2d 156 lb (+11 lb) 105/70 Negative -?-?-?-?-?-?-?-?-?-?-?-?- Negative 145 22 -?-?-?-?-?-?-?-?-?-?-?-?- LC- no vb/ctx/lo f. good fm. using fresh test. 28 week labs ordered. LC- no vb/ctx/lof. good fm. using fresh test. 28 week labs ordered.low lying placenta and following for ovarian cyst- has repeat scan. 01/13/24 -?-?-?-?-?-?-?-?-?-?-?-?- 26w 0d 162 lb 2 oz (+17 lb 2 oz) 130/85 Negative -?-?-?-?-?-?-?-?-?-?-?-?- Negative 150 27 -?-?-?-?-?-?-?-?-?-?-?-?- JV- failed one h our and has slightly low plts. declines 3 hr. all fasting levels out of range. declines metformin. starting insulin lantus HS. 11 units. enedina system ordered. 02/10/24 -?-?-?-?-?-?-?-?-?-?-?-?- 30w 0d 167 lb 8 oz (+22 lb 8 oz) 108/64 Negative -?-?-?-?-?-?-?-?-?-?-?-?- Negative 138 30 -?-?-?-?-?-?-?-?-?-?-?-?- MH-No Vb, LOF. G ood FM. Currently 17U Lantus @hs. Fastings above 95 and will increase 2U. Larc. tdap. 02/22/24 -?-?-?-?-?-?-?-?-?-?-?-?- 31w 5d 171 lb (+26 lb) 127/78 Trace -?-?-?-?-?-?-?-?-?-?-?-?- Negative 135 32 -?-?-?-?-?-?-?-?-?-?-?-?- KW- no vb/lof/ct x. good fm. BS controlled. growth US on thurs. 02/29/24 -?-?-?-?-?--?-?-?-?-?-?-?- 32w 5d 171 lb (+26 lb) 111/73 Negative -?-?-?-?-?-?-?-?-?-?-?-?- Negative 130 33 Cephalic -?-?-?-?-?-?-?-?-?-?-?-?- KW-no vb/lof/ctx . good fm reactive NST. BS still controlled. 03/03/24 -?-?-?-?-?-?-?-?-?-?-?-?- 33w 1d 171 lb (+26 lb) 120/68 -?-?-?-?-?-?-?-?-?-?-?-?- 130 -?-?-?-?-?-?-?-?-?-?-?-?- KW- NST only. re active. BS reviewed and have had 4/6 fasting numbers over 95. increase Lantus by 3 units per JV. KW- NST only. reactive. BS r destineyiewed and have had 4/6 fasting numbers over 95. increase Lantus by 3 units per JV. now taking 22 units of lantus 03/07/24 -?-?-?-?-?-?-?-?-?-?-?--?- 33w 5d 172 lb (+27 lb) 117/74 Negative -?-?-?-?-?-?-?-?-?-?-?-?- Negative 140 34 Cephalic -?-?-?-?-?-?-?-?-?-?-?-?- SM- no vb lof go od fm n oreuglar ctx, increase to 24 unite at night due to elevated fastings 03/10/24 -?-?-?-?-?-?-?-?-?-?-?-?- 34w 1d 172 lb (+27 lb) 120/73 Negative -?-?-?-?-?-?-?-?-?-?-?-?- Negative 140 -?-?-?-?-?-?-?-?-?-?-?-?- MH-NST only reac tive. FBS >95/consult SM and insulin to 26U QHS 03/14/24 -?-?-?-?-?-?-?-?-?-?-?-?- 34w 5d 173 lb 4 oz (+28 lb 4 oz) 115/64 Negative -?-?-?-?-?-?-?-?-?-?-?-?- Negative 140 -?-?-?-?-?-?-?-?-?-?-?-?- JV- NST reactive . glucose log reviewed and all just at or below 95 for fasting. no adjustment on insulin yet. growth scan scheduled for Next 03/17/24 -?-?-?-?-?-?-?-?-?-?-?-?- 35w 1d 173 lb 6 oz (+28 lb 6 oz) 108/72 Negative -?-?-?-?-?-?-?-?-?-?-?-?- Negative 135 -?-?-?-?-?-?-?-?-?-?-?-?- KW-NST only-reac tive. fastings are 93-95, had 2 over 95 over the last week. will monitor over the weekend and may need increase on thursday. 03/21/24 -?-?-?-?-?-?-?-?-?-?-?-?- 35w 5d 174 lb (+29 lb) 107/72 Negative -?-?-?-?-?-?-?-?-?-?-?-?- Negative 145 -?-?-?-?-?-?-?-?-?-?-?-?- KW- NST reactive . BS still elevated. Per SM increase 2 units of Lantus at HS. has growth US on 03/28/24 -?-?-?-?-?-?-?-?-?-?-?-?- 36w 5d 174 lb 6 oz (+29 lb 6 oz) 123/79 Negative -?-?-?-?-?-?-?-?-?-?-?-?- Negative 140 2 -?-?-?-?-?-?-?-?-?-?-?-?- SM- no vb lof go od fm no reuglar ctx 03/31/24 -?-?-?-?-?-?-?-?-?-?-?-?- 37w 1d 174 lb 8 oz (+29 lb 8 oz) 109/69 Negative -?-?-?-?-?-?-?-?-?-?-?-?- Negative 150 -?-?-?-?-?-?-?-?-?-?-?-?- SM- no vb lof go od fm no reuglar ctx reviewd increased insulin demands still increasing insulin. consider deliveyr at 38-39 weeks, normal growht percentile but AC>99 SM- no vb lof good fm no reu glar ctx reviewd increased insulin demands still increasing insulin. consider deliveyr at 38-39 weeks, normal growht percentile but AC>99. discussed rechecking cbc 04/04/24 -?-?-?-?-?-?-?-?-?-?-?-?- 37w 5d 176 lb 2 oz (+31 lb 2 oz) 119/74 Negative -?-?-?-?-?-?-?-?-?-?-?-?- Negative 140 3.5 -?-?-?-?-?-?-?-?-?-?-?-?- 80 -2 JV- no lof , vaginal bleeding, or dec fm. nst reactive. patient is still having elevated fasting levels despite moving her insulin doses up every visit. plan for earlier delivery. will JV- no lof, vaginal bleeding , or dec fm. nst reactive. patient is still having elevated fasting levels despite moving her insulin doses up every visit. plan for earlier delivery. will set up IOL between 38-39 weeks 04/06/24 -?-?-?-?-?-?-?-?-?-?-?-?- 38w 0d 174 lb 8 oz (+29 lb 8 oz) 124/80 Negative -?-?-?-?-?-?-?-?-?-?-?-?- Negative 135 39 4 -?-?-?-?-?-?-?-?-?-?-?-?- 80 -2 KW- no vb/ lof/ctx. good fm. IOL set up for tomorrow NST FHR Rate Baby A Baseline: 130 Variability:: Moderate Accelerations:: 15 x 15 Decelerations:: None NST Reactive:: Yes FHR Category:: Category I Uterine Activity:: 3-4 minutes ROS Constitutional Constitutional: Denies change in weight, fatigue, fever(s), headache(s), poor appetite or weakness Eyes Eyes: Denies blurry vision, change in vision, floaters, seeing flashes or spots in vision ENT HEENT: Denies dizziness, headache(s), loss taste/smell or sore throat Cardiovascular Cardiovascular: Denies chest pain, dizziness, dyspnea, irregular heart rhythm, lightheadedness, palpitations or rapid heart rate Respiratory/Chest Respiratory/Chest: Denies change in mental status, chest tightness, cough, dyspnea or breast pain Gastrointestinal Gastrointestinal: Denies anorexia, chewing difficulty, constipation, diarrhea or weight changes Genitourinary Genitourinary: Denies difficulty urinating, dysuria, flank pain, genital pain, urinary frequency or urinary urgency Musculoskeletal Musculoskeletal: Denies back pain, difficulty walking, extremity pain, joint pain, muscle cramps or muscle weakness Integumentary Integumentary: Denies lesions or unusual bruising Neurologic Neurologic: Denies abnormal movements, abnormal speech, dizziness, numbness, seizure-like activity, syncope or weakness Psychiatric Psychiatric: Denies behavioral changes, change in appetite, confusion, depression, homicidal ideation, suicidal ideation or suicidal thoughts Endocrine Endocrinology: Denies excessive sweating, polydipsia or polyuria Hematologic/Lymphatic Hematologic/Lymphatic: Denies anemia Allergic/Immunologic Allergic/Immunologic: Denies itchy eyes, lip swelling, throat swelling, tongue swelling or wheezing Vital Signs Vital Signs Vital Signs: 04/06/24 17:35 04/06/24 17:35 Pulse Rate 80 Blood Pressure 131/67 H BP Systolic 131 BP Diastolic 67 Weight Weight: 174 lb Body Mass Index (BMI) 32.8 Physical Exam Const alert, oriented x3 and no apparent distress General Appearance: cooperative Orientation / Consciousness: awake HEENT normocephalic Neck full ROM Lymph Lymphatic: no lymphadenopathy noted Chest inspection of chest normal Resp normal respiratory effort and normal air movement Effort and Inspection: able to speak in complete sentences and symmetric chest movement GI soft to palpation and non-tender Inspection: gravid Palpation: soft; Negative for tender external exam normal Back/Spine normal to inspection Extremity normal to inspection and full ROM Skin no rashes or lesions noted Psych mental status grossly normal Appearance: grossly normal Speech: normal speech Labs Labs Labs: Blood Type A POSITIVE Antibody Screen NEGATIVE Hct 37.6 % (37-47) Hgb 12.6 g/dL (12.0-15.0) Pap Smear Negative Obstetrics Ultrasound Syphilis Total Ab Non-reactive Rubella IgG Antibody Reactive (Nonreactive) Hep Bs Antigen Non-Reactive (Nonreactive) Hepatitis C Antibody Non-Reactive (Nonreactive) Chlamydia DNA (PILO) Negative (Negative) N.gonorrhoeae DNA (PILO) Negative (Negative) HIV 1&2 Antibody Non-Reactive (Nonreactive) Glucose 1 Hr 50 gm 137 mg/dL (70-140) Gest Glucose Tolerance MG/DL Rhogam given: No Assessment & Plan (1) Active labor: PLAN: Patient presents IAL, plan expectant management for , pitocin/AROM PRN if needed. Pain management: plans epidural. GBS positive plan IV PCN. Management of any complications: see problem list I have reviewed the [facility] and made any clinically relevant updates. Dr Momin aware of assessment and plan agrees with admission and above. (2) Gestational diabetes: QUALIFIERS: Gestational diabetes mellitus control: insulin- controlled Trimester: third trimester Qualified Code(s): O24.414 - Gestational diabetes mellitus in , insulin controlled COMMENT: did 1 hr and failed, declined 3 hr but fasting levels are all out of range. declines metformin, starting insulin 01/13/24. 03/10 Lantus 26U QHS. Growth US Q4W. NST 2 X wk at 32 wk (3) Thrombocytopenia: COMMENT: borderline low, repeat in 4 weeks: slightly low, rpt 4 wk (4) Ovarian cyst affecting , antepartum: COMMENT: left. 3.4cm. repeat scan in 6 weeks (5) GBS (group B streptococcus) UTI complicating : QUALIFIERS: Trimester: third trimester Qualified Code(s): O23.43 - Unspecified infection of urinary tract in , third trimester; B95.1 - Streptococcus, group B, as the cause of diseases classified elsewhere COMMENT: treat in labor. (6) Hx of gestational diabetes in prior , currently : COMMENT: 1st trimester A1c 4.9 (7) Supervision of high-risk : QUALIFIERS: Trimester: third trimester Qualified Code(s): O09.93 - Supervision of high risk , unspecified, third trimester COMMENT: PRR, , HEATHER 04/27/24,sur[facility] Alma Delia Vargas, Surendra (8) : QUALIFIERS: Weeks of gestation: 38 weeks Qualified Code(s): Z3A.38 - 38 weeks gestation of COMMENT: anatomy nl, declines genetic & carrier testing (9) Carpal tunnel syndrome: QUALIFIERS: Laterality: unspecified laterality Qualified Code(s): G56.00 - Carpal tunnel syndrome, unspecified upper limb Charges/Coding Multi Select Codes Urinary/Genital Urinary/Genital CPT Codes: No Charge
[2024-04-06] MEDS: Penicillin G Pot 5,000,000 UNITS in 0.9% Normal Saline (100mL MB+) 100 ML 150 UNITS IV (17:41)
[2024-04-06] MEDS: Lactated Ringers 1,000 ML 999 ML IV (17:44)
[2024-04-06 17:53] LABS: Absolute Lymphocyte Count 1.94 X10^3/uL (0.83-4.51); Absolute Neutrophil Count 8.1 X10^3/uL (2.0-7.7); Basophil# 0.05 X10^3/uL; Basophil% 0.5 % (0-1); Eosinophil# 0.08 X10^3/uL; Eosinophils% 0.7 % (0-5); Hematocrit 39.1 % (37-47); Hemoglobin 13.5 g/dL (12.0-15.0); Lymphocyte # 1.94 X10^3/ul (0.83-4.51); Lymphocyte % 17.6 % (19-41); Mean Corp Hgb Conc 34.5 g/dL (32-36); Mean Corpuscular Hgb 30.8 pg (27.0-32.0); Mean Corpuscular Volume 89.3 fL (81-99); Mean Platelet Vol. 10.2 fl (6.2-12.0); Monocyte# 0.68 X10^3/uL; Monocyte% 6.2 % (0-10); NRBC Flagged by Analyzer 0.2 % (0-5); Neutrophil # 8.11 X10^3/uL (2.7-7.7); Neutrophil % 73.5 % (47-70); Platelet Count 124 K/mm3 (150-450); RBC Distribution Width CV 13.9 % (11.6-14.6); RBC Distribution Width SD 45.1 fl (35.1-43.9); Red Blood Count 4.38 M/mm3 (4.2-5.4)
[2024-04-06 18:04] LABS: Bedside Glucose 89 mg/dL (74-106)
[2024-04-06 18:28] LABS: Syphilis Antibodies Non-reactive
[2024-04-06] MEDS: fentaNYL-bupivacaine (epidural) 100 ML BAG EPIDURAL (18:45)
[2024-04-06] MEDS: Lactated Ringers 1,000 ML 200 ML IV (19:04)
[2024-04-06 20:51] LABS: Bedside Glucose 80 mg/dL (74-106)
--- NOTE | 2024-04-06 20:54 | PN_ITS ---
Progress Note comfortable with epidural current tracing: FHT: 120 Moderate variability reactive no decelerations category I tracing Firebaugh: 3-4 minute Contractions Membranes:AROM clear SVE:7/80/-1 A/P: Continue with position changes Start/ Titrate pitocin per protocol Epidural per anesthesia PCN for GBS prophylaxis Anticipate Dr Momin aware of above assessment and agrees with plan of care Assessment & Plan Assessment/Plan (1) Active labor: (2) Gestational diabetes: QUALIFIERS: Gestational diabetes mellitus control: insulin- controlled Trimester: third trimester Qualified Code(s): O24.414 - Gestational diabetes mellitus in , insulin controlled (3) Thrombocytopenia: (4) Ovarian cyst affecting , antepartum: (5) GBS (group B streptococcus) UTI complicating : QUALIFIERS: Trimester: third trimester Qualified Code(s): O23.43 - Unspecified infection of urinary tract in , third trimester; B95.1 - Streptococcus, group B, as the cause of diseases classified elsewhere (6) Hx of gestational diabetes in prior , currently : (7) Supervision of high-risk : QUALIFIERS: Trimester: third trimester Qualified Code(s): O09.93 - Supervision of high risk , unspecified, third trimester (8) : QUALIFIERS: Weeks of gestation: 38 weeks Qualified Code(s): Z3A.38 - 38 weeks gestation of (9) Carpal tunnel syndrome: QUALIFIERS: Laterality: unspecified laterality Qualified Code(s): G56.00 - Carpal tunnel syndrome, unspecified upper limb Multi Select Codes Urinary/Genital Urinary/Genital CPT Codes: No Charge
[2024-04-06 21:40] LABS: Bedside Glucose 84 mg/dL (74-106)
[2024-04-06] MEDS: Penicillin G 3,000,000 Units 50 ML 100 UNITS IV (21:40)
[2024-04-06] MEDS: Oxytocin 15 Units/NS 250ml 15 UNITS/250 ML IV.SOLN 83 UNITS IV (22:31)
[2024-04-06] MEDS: Oxytocin 10 UNITS/ML Vial IM (22:31)
[2024-04-06] MEDS: Methylergonovine 0.2 MG/ML Ampul IM (22:37)
--- NOTE | 2024-04-06 22:48 | OB.VAGDELI_ITS ---
Assessment & Plan (1) Vaginal delivery: COMMENT: KW 38 IAL boy (2) Active labor: (3) Thrombocytopenia: COMMENT: borderline low, repeat in 4 weeks: slightly low, rpt 4 wk (4) Gestational diabetes: QUALIFIERS: Gestational diabetes mellitus control: insulin- controlled Trimester: third trimester Qualified Code(s): O24.414 - Gestational diabetes mellitus in , insulin controlled COMMENT: did 1 hr and failed, declined 3 hr but fasting levels are all out of range. declines metformin, starting insulin 01/13/24. 03/10 Lantus 26U QHS. Growth US Q4W. NST 2 X wk at 32 wk (5) Ovarian cyst affecting , antepartum: COMMENT: left. 3.4cm. repeat scan in 6 weeks (6) GBS (group B streptococcus) UTI complicating : QUALIFIERS: Trimester: third trimester Qualified Code(s): O23.43 - Unspecified infection of urinary tract in , third trimester; B95.1 - Streptococcus, group B, as the cause of diseases classified elsewhere COMMENT: treat in labor. (7) Hx of gestational diabetes in prior , currently : COMMENT: 1st trimester A1c 4.9 (8) Supervision of high-risk : QUALIFIERS: Trimester: third trimester Qualified Code(s): O09.93 - Supervision of high risk , unspecified, third trimester COMMENT: PRR, , HEATHER 04/27/24,surprise PC SamAlma Delia, Surendra (9) : QUALIFIERS: Weeks of gestation: 38 weeks Qualified Code(s): Z3A.38 - 38 weeks gestation of COMMENT: anatomy nl, declines genetic & carrier testing (10) Carpal tunnel syndrome: QUALIFIERS: Laterality: unspecified laterality Qualified Code(s): G56.00 - Carpal tunnel syndrome, unspecified upper limb Maternal Data Information HEATHER Calculator Estimated Delivery Date Method Current WG Current Estimate 04/20/24 Ultrasound #1 38w 0d Other Estimates 04/27/24 LMP (Certain) 37w 0d Final HEATHER: 04/20/24 Final HEATHER Source: US >20 weeks Gestational age: 38.0 Vaginal Delivery Maternal Presentation Maternal Presentation: Active Labor Maternal Presentation: Presented to unit for active labor Vaginal Delivery Information Procedure Performed: Spontaneous Vaginal Delivery Surgeon/Practitioner: Karolyn Doss Date of Procedure: 04/06/24 Pre-Procedure Diagnosis: see problem list Post-Procedure Diagnosis: same Type of anesthesia: Epidural Estimated Blood Loss: 400 Time of Delivery: 22:24 Findings Description of procedure: Progressed well to 10cm dilated and made steady progress with effective maternal pushing. Delivered the head in ALEXIS presentation. The head was delivered atraumatically and no nuchal cord was identified. The anterior and posterior shoulders delivered without complication followed by the rest of the infant and the infant was placed on the maternal abdomen. Delayed cord clamping was employed for approximately 3 minutes. Cord was clamped and cut and gentle traction was applied to the cord and the placenta delivered spontaneously. Immediately following, it was noted to be intact with a 3 vessel cord. Uterine bleeding brisk, IM Pitocin and Methergine given and uterine sweep performed. Uterine bleeding now stable. The perineum and vagina were inspected and noted to have a second degree laceration which was repaired with 3-0 Vicryl in the usual fashion. EBL was 400cc. Patient and infant tolerated delivery well. Apgars 8/9. Dr Schneider notified of vaginal delivery and orders reviewed. Physician agrees with current plan of care. Presentation: Vertex Amniotic Membrane Rupture Type: Artificial Amniotic Fluid Description: Clear Placental Delivery Description: Spontaneous Placenta Disposition: [facility] Specimen collected: No Cord Vessel Description: 3 Vessels Cord Entanglement: None A Gender: Male (1 minute): 8 (5 minute): 9 Delayed Cord Clamping: Yes Automobile Rental Agent svp marketing: No Post Vaginal Deli Medications given after delivery: IV Pitocin, IM Pitocin and IM Methergin Episiotomy Description: None Laceration: 2nd degree Complication Complications: No Multi Select Codes Urinary/Genital Urinary/Genital CPT Codes: 17783 Vaginal Delivery [facility]
--- NOTE | 2024-04-06 22:53 | DCINST_ITS ---
Discharge Instructions Diet Discharge Diet: No restrictions DC O2, CPAP, BIPAP needs Home O2 Discharge instructions: No Dressing / Incision Discharge Activity: Return to Normal Activity May resume sexual activity in: 6-8 weeks Dressing / Incision Call your doctor if you observe: Fever of 101 or Higher, Coldness, Increased Pain, Numbness or Tingling, Change in Color, Inability to urinate, Inability to have a bowel movement, Using more than 1 pad per hour, Shortness of breath, Dizziness, Fainting spells, Swelling in the ankles, Chest pain, Increased p alpitations (irregular heartbeat), Calf discomfort and Uncontrolled pain Follow Up Care Please Follow Up With: Karolyn Doss CNM When: Please call the office to schedule your follow up appointment in 6 weeks. If you had high blood pressure please call to schedule an appointment in 2 weeks. Test Results: Test results from this visit will be discussed in further detail at your follow- up appointment, if applicable. Discharge Plan Admission Admit Date/Time: 04/06/24 17:16 Attending Provider: Karolyn Doss Primary Care Provider: Aleksandra Berger Discharge Orders/Prescriptions Prescriptions: No Action prenat.vits,bartolo,[id number] Tablet 1 tab PO DAILY insulin glargine [Lantus Solostar U-100 Insulin] 100 unit/mL (3 mL) insulin pen 30 unit subcut HS (DME) insulin syringe-needle U-100 [BD Insulin Syringe Micro-Fine] 1 mL 28 gauge x 1/2 syringe See Rx Instructions .Route Qty: 100 3RF Rx Instructions: As directed (DME) lancets [Droplet Lancets] 30 gauge misc See Rx Instructions .ROUTE .MEDSUPPLY Qty: 200 2RF Rx Instructions: Check blood sugars fasting and 2 hours after breakfast, lunch, and supper. (DME) Blood Glucose Test Strip See Rx Instructions .MEDSUPPLY Qty: 120 5RF Rx Instructions: As directed-fasting PRN Referrals / Follow Up: Aleksandra Berger MD [Primary Care Provider] -
[2024-04-06] MEDS: Ibuprofen 600 MG Tablet PO (23:41)
[2024-04-07] VITALS (23 sets, daily range): BP systolic 96–124; BP diastolic 58–87; PULSE 72–87; RESP 16–18; TEMP 36.1–36.9; O2SAT 94–98
[2024-04-07 00:39] LABS: Bedside Glucose 123 mg/dL (74-106)
[2024-04-07] MEDS: Benzocaine/Lanolin/Aloe Vera 85 GM Spray 1 SPRAY TOPICAL (00:47)
[2024-04-07] MEDS: Acetaminophen 500 MG Tablet 1000 MG PO ×3 (04:16→21:19)
[2024-04-07 06:41] LABS: Bedside Glucose 77 mg/dL (74-106)
--- NOTE | 2024-04-07 08:39 | PCM.PN.OB ---
Subjective Subjective Patient doing well without complaints. Tolerating PO. Ambulating and voiding without difficulty. Feeding well. Denies chest pain, shortness of breath, calf pain/swelling, fevers, chills, lightheadedness. Objective Data Objective Data Vital Signs: Vital Signs Temp Pulse Resp BP Pulse Ox O2 Del Method 98.0 F 82 16 100/65 98 Room Air 04/07/24 04:25 04/07/24 04:25 04/07/24 04:25 04/07/24 04:25 04/07/24 04:25 04/07/24 04:25 Oxygen Delivery Method Room Air Weight: 174 lb Body Mass Index (BMI) 32.8 Intake & Output: Intake and Output for Last 24 Hours 04/05/24 04/06/24 04/07/24 23:59 23:59 23:59 Intake Total 1916.67 / 191.67 250 / 250 Output Total 1400 / 1400 Balance 1915. / 1915. -1150 / -1150 Lab / Micro Data 04/06/24 17:35 Labs: Laboratory Results - last 24 hr 04/06/24 17:35: WBC 11.0, RBC 4.38, Hgb 13.5, Hct 39.1, MCV 89.3, MCH 30.8, MCHC 34.5, RDW Std Deviation 45.1 H, RDW Coeff of Meryl 13.9, Plt Count 124 L, MPV 10.2, Immature Gran % (Auto) 1.500 H, Neut % (Auto) 73.5 H, Lymph % (Auto) 17.6 L, [place] % (Auto) 6.2, Eos % (Auto) 0.7, Baso % (Auto) 0.5, Absolute Neuts (auto) 8.1 H, Absolute Lymphs (auto) 1.94, Nucleated RBC % 0.2, Syphilis Total Ab Non-reactive, Blood Type A POSITIVE, Antibody Screen NEGATIVE 04/06/24 17:45: POC Glucose 89 04/06/24 20:19: POC Glucose 80 04/06/24 21:18: POC Glucose 84 04/07/24 00:21: POC Glucose 123 H 04/07/24 05:45: POC Glucose 77 ROS Constitutional Constitutional: Denies chills, fatigue, fever(s), poor appetite or weakness Eyes Eyes: Denies blurry vision, change in vision, seeing flashes or spots in vision ENT HEENT: Denies dizziness, headache(s), loss taste/smell or sore throat Cardiovascular Cardiovascular: Denies chest pain, dizziness, dyspnea, irregular heart rhythm, palpitations or rapid heart rate Respiratory/Chest Respiratory/Chest: Denies chest tightness, cough, dyspnea or breast pain Gastrointestinal Gastrointestinal: Denies abdominal pain, constipation or vomiting Genitourinary Genitourinary: Denies dysuria or flank pain Musculoskeletal Musculoskeletal: Denies difficulty walking, joint pain, limited range of motion or numbness Neurologic Neurologic: Denies abnormal movements, abnormal speech, dizziness, numbness, seizure-like activity or syncope Psychiatric Psychiatric: Denies anxiety, behavioral changes, change in appetite, confusion, depression or suicidal thoughts Physical Exam Const alert, oriented x3 and no apparent distress General Appearance: cooperative and comfortable Resp normal respiratory effort Cardio regular rate GI normal to inspection, nondistended, normoactive bowel sounds GI Narrative: uterus is firm below umbilicus Palpation: soft Back/Spine no CVA tenderness and thoraco-lumbar ROM normal Extremity normal to inspection, no clubbing, cyanosis or edema, no calf tenderness and no pedal edema Psych mental status grossly normal, thought process normal, cooperative, affect normal, speech normal, activity/motor behavior normal, denies homicidal ideation and denies suicidal ideation Assessment & Plan (1) Vaginal delivery: COMMENT: SAJAN arita 40 IAL boy PLAN: s/p MARCI PPD # 1 1. routine post delivery care 2. breast feeding- support given 3. rh positive 4. rubella immune 5. dc tomorrow am
[2024-04-07] MEDS: Ibuprofen 600 MG Tablet PO ×2 (09:03→18:35)
--- NOTE | 2024-04-07 13:55 | NURSING ---
All documentation by skilled nursing professional Luna Grubbs reviewed by nursing administrator Naomy YOON, RN.
[2024-04-07] MEDS: Hydrocortisone 2.5% Crm 1 APPLIC TOPICAL (18:45)
[2024-04-07] MEDS: Dibucaine 30 GM Tube 1 APPLIC TOPICAL (18:45)
[2024-04-08] MEDS: Ibuprofen 600 MG Tablet PO (01:59)
[2024-04-08 02:00] VITALS: BP 99/73; PULSE 90; RESP 16; TEMP 37; O2SAT 96
== END 2024-04-08 06:35 | disposition home or self-care (01) | DRG 806 ==
LOC: WPOUT 17:17 → WP 18:01
PROVIDERS: Admitting Provider Advanced Practice Midwife; PCP Internal Medicine; Referring Provider Advanced Practice Midwife; Visit Provider Advanced Practice Midwife
DX: O24.424 Gestational diabetes mellitus in childbirth, insulin controlled (principal); Z37.0 Single live birth; O99.354 Diseases of the nervous system complicating childbirth; O99.12 Other diseases of the blood and blood-forming organs and certain disorders involving the immune mechanism complicating childbirth; O72.1 Other immediate postpartum hemorrhage; D69.6 Thrombocytopenia, unspecified; G56.00 Carpal tunnel syndrome, unspecified upper limb; Z3A.38 38 weeks gestation of pregnancy; O99.824 Streptococcus B carrier state complicating childbirth; B95.1 Streptococcus, group B, as the cause of diseases classified elsewhere; O99.892 Other specified diseases and conditions complicating childbirth; Z87.440 Personal history of urinary (tract) infections; O34.83 Maternal care for other abnormalities of pelvic organs, third trimester; N83.202 Unspecified ovarian cyst, left side; O70.1 Second degree perineal laceration during delivery
CPT/HCPCS: 59025; 59050; 82962; 85025; 86780; 86850; 86900; 86901; 99221; G0378

== ENCOUNTER → 2024-05-23 | Outpatient (CLI) | payer OTHER, SELFPAY ==
[2024-05-23 07:52] LABS: Glucose GTT- Fasting 100 mg/dL (70-99)
[2024-05-23 10:05] LABS: Glucose GTT-30 minutes 175 mg/dL (110-170)
[2024-05-23 10:45] LABS: Glucose GTT- 1 Hour 169 mg/dL (120-170)
[2024-05-23 11:40] LABS: Glucose GTT- 2 Hour 116 mg/dL (70-120)
== END | disposition home or self-care (01) ==
LOC: LAB 07:00
PROVIDERS: PCP Internal Medicine; Referring Provider Nurse Practitioner Women's Health; Visit Provider Nurse Practitioner Women's Health
DX: Z86.32 Personal history of gestational diabetes (principal)
CPT/HCPCS: 36415; 82951; 82952

== ENCOUNTER 2024-09-13 17:30 | Outpatient (RCR) | payer OTHER, SELFPAY ==
--- NOTE | 2024-07-27 13:34 | HP.PTEVAL_ITS ---
Patient's Visit Information Visit Information Visit Information: JOSH HAIRSTON is a 33 year old F referred to Physical Therapy by Dr. Aleksandra Berger MD with a diagnosis of L hip pain. Date of Evaluation: 07/27/24 Physical Therapist: Jeff Stern, DPT, OCS, CSCS Visit Plan Frequency: 1-2x /Week Duration: 4-6 Weeks Plan: weekly to start but up to 2x/week for 4-6 weeks as needed. IE HEP: quad prone with hip ext stretch, itb stretch s/l, piriformis stretch all L 30 4x and SLR xtension 3x10 all 2x/day with pics. Will treat with instruction in and progression of hip strengthening exercises a nd return to workout as pain subsides. next session if better:hip stabs and strength ext , rotation (SLR, clamshell, bridging, s/l plank etc)...if no better than consider UE, DTR, aggressive stretching to soft tissue and strength adn increase frequency. Subjective Subjective: L hip pain for a year or more. Started working out in 2023 and both hips got sore. R cleared up and L lingered. Got and it got better. it came back once had baby. Pain is lateral and posterior inside L hip locally and into lateral leg. Wrose adn stiff in am. Pretty constant now. Transitions hurt. Painfree at rest. No diagnostics. Sleep is fine but getting up hurts, worse if sleeps on R side, trying to sleep on back. 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 Basic ADLs all I. Hobbies: gardening and can do but kids keep her busy. Kids are 4,2,3 month. Uncomfy chasing them around. Work out walking only. Feels it a bit but no limping, only limps getting up. Pain L hip: Pain Intensity (Out of 10): 1 Pain Intensity Range: 0 and 4 Comment: transition to stand hurts. Objective Objective: Walks into PT I without antalgia, steps reciprocal with pain up but better down. heel and toe walk and march and butt kicks able and marching most painful lateral L hip. - [place], - [place], - slump, - SLR Lumbar moves well adn without pain, stiff into extension. Tender to palpation on L hip distal to iliac crest moderately and into TFL, and ITB, not at GT. reflexes 2/3 patella and achilles Sensation LE WNL to gross light touch. strength LE hip ext 3 L and 4- R, abd 3 adn painful L and 4- R, flexion 4- B, knee ext and flexion 4+ B, ankles 4+ B. Balance/Special Test Scores Lower Extremity Functional Score: 73 Goals Goal 1:: Sleep in R side without pain Goal Time Frame: 4-6 Weeks Goal 2:: return to gym workout without pain Goal Time Frame: 4-6 Weeks Goal 3:: get up in am without stiffness or hesitancy in hip Goal Time Frame: 4-6 Weeks Goal 4:: I appropriate HEP to limit future problems(stretch adn strengthen hips) Goal Time Frame: 4-6 Weeks Goal 5:: LEFS 76 Goal Time Frame: 4-6 Weeks Rehabilitation Potential Physical Therapy Diagnosis: L hip pain making transitions painful and limiting mobility at home Rehabilitation Potential: Good Anticipated Interventions Patient/Client Instruction: Educate patient on: Condition and Plan of Care For the Purpose of:: To decrease pain, To increase ROM, To improve nutrient delivery to tissue and To improve muscle performance and motor function Therapeutic Exercise to Include: Strength training, Postural training, Flexibilty training, Passive ROM and Active ROM For the Purpose of:: To decrease pain, To increase ROM, To improve nutrient delivery to tissue, To improve muscle performance and motor function and To increase tolerance to activity/condition/position Manual Therapy Techniques to Include: Mobilization, Passive ROM and Soft tissue mobilization For the Purpose of:: To decrease pain, To increase ROM, To improve nutrient delivery to tissue and To improve muscle performance and motor function Ultrasound (thermal/non thermal): Yes For the Purpose of:: To decrease pain, To decrease swelling/inflammation and To increase ROM Text: Thank you for the opportunity to evaluate your patient. For Medicare and Medicare HMO plans, please review the plan of care and approve it. It will need to be FAXED BACK to us at [phone] for Medicare purposes. For Medicare only, by signing this I certify the plan of care. Please let me know if there are questions or concerns regarding this plan of care. Physician Signature: ___Date:
--- NOTE | 2024-09-13 17:56 | HP.PTDCSUM ---
Discharge Summary D/C summary: It has been my pleasure to treat JOSH HAIRSTON referred by Dr. Aleksandra Berger MD, with the diagnosis of L hip pain for a total of 4 visit(s). Discharge Date: 09/13/24 Please see the following information for a summary of their discharge status. Subjective Subjective: Doing really well Hard spinning yesterday so slightly sore today but overall good. 75% better. Other 25% better is sore days to 08/23 and she slept funny and cycled alot yesterday. Exercises going weell. Pain L hip: Pain Intensity (Out of 10): 5 Overall Improvement % Improvement: 75 Objective Objective/Function: Full aROM and PROM L hip without pain. Tightness still present homero lateral hip with quad stretch. weakness is apparent in rotators and abd but improving and working on this at [facility]. - [place], [place]. jogs well without pain today short distance. Goals Goal 1:: Sleep in R side without pain Goal Progress: Progressing Goal 2:: return to gym workout without pain Goal Progress: Goal Met Goal 3:: get up in am without stiffness or hesitancy in hip Goal Progress: Goal Met Goal 4:: I appropriate HEP to limit future problems(stretch adn strengthen hips) Goal Progress: Goal Met Goal 5:: LEFS 76 Goal Progress: Progressing Plan Plan: d/c to HEP, pt to contact docotr if improvement stagnates. D/C Information d/c sentence: If there are questions or concerns regarding this patient's physical therapy, please feel free to call me at [phone]. Thank you for the referral of this patient. Sincerely, Jeff Stern, DPT, OCS, CSCS Balance/Gait/Functional tests Balance/Special Test Scores Lower Extremity Functional Score: 75 Improvement % Improvement: 75
--- NOTE | 2024-09-13 17:56 | HP.PTDCSUM ---
Discharge Summary D/C summary: It has been my pleasure to treat JOSH HAIRSTON referred by Dr. Aleksandra Berger MD, with the diagnosis of L hip pain for a total of 4 visit(s). Discharge Date: 09/13/24 Please see the following information for a summary of their discharge status. Subjective Subjective: Doing really well Hard spinning yesterday so slightly sore today but overall good. 75% better. Other 25% better is sore days to 08/23 and she slept funny and cycled alot yesterday. Exercises going weell. Pain L hip: Pain Intensity (Out of 10): 5 Overall Improvement % Improvement: 75 Objective Objective/Function: Full aROM and PROM L hip without pain. Tightness still present homero lateral hip with quad stretch. weakness is apparent in rotators and abd but improving [facility] - [place], [place]. jogs well without pain today short distance. Goals Goal 1:: Sleep in R side without pain Goal Progress: Progressing Goal 2:: return to gym workout without pain Goal Progress: Goal Met Goal 3:: get up in am without stiffness or hesitancy in hip Goal Progress: Goal Met Goal 4:: I appropriate HEP to limit future problems(stretch adn strengthen hips) Goal Progress: Goal Met Goal 5:: LEFS 76 Goal Progress: Progressing Plan Plan: d/c to HEP, pt to contact docotr if improvement stagnates. D/C Information d/c sentence: If there are questions or concerns regarding this patient's physical therapy, please feel free to call me at [phone]. Thank you for the referral of this patient. Sincerely, Jeff Stern, DPT, OCS, CSCS Balance/Gait/Functional tests Balance/Special Test Scores Lower Extremity Functional Score: 75 Improvement % Improvement: 75
== END 2024-09-13 19:00 | disposition home or self-care (01) ==
LOC: PT 17:30
PROVIDERS: PCP Internal Medicine; Referring Provider Internal Medicine; Visit Provider Internal Medicine
DX: M25.552 Pain in left hip (principal)
CPT/HCPCS: 97110; 97161; 97530